=== PATIENT | female | born 1990 | race American Indian/Alaskan Native ===

== ENCOUNTER 2016-07-20 09:06 | Emergency (ER) | payer MEDICARE ==
[2016-07-20 09:52] LABS: Eosinophils % (Auto) 0.5 % (0.0-4.3); Hematocrit 38.4 % (30.3-42.9); Hemoglobin 12.6 gm/dl (10.1-14.3); Mean Corpuscular HGB Conc 33 % (30-34); Mean Corpuscular Hemoglobin 30 pg (28-32); Mean Corpuscular Volume 91 fl (79-97); Platelet Count 185 K/mm3 (140-440); Red Blood Count 4.24 M/mm3 (3.65-5.03); Red Cell Distribution Width 13.4 % (13.2-15.2)
[2016-07-20 09:57] LABS: Alanine Aminotransferase 15 units/L (7-56); Albumin 4.2 g/dL (3.9-5); Albumin/Globulin Ratio 1.3 %; Alkaline Phosphatase 67 units/L (35-129); Anion Gap 17 mmol/L; BUN/Creatinine Ratio 21.66; Bilirubin,Total 0.3 mg/dL (0.1-1.2); Blood Urea Nitrogen 13 mg/dL (7-17); Carbon Dioxide 24 mmol/L (22-30); Glucose 93 mg/dL (65-100); Lipase 22 units/L (13-60); Potassium 3.3 mmol/L (3.6-5.0); Sodium 140 mmol/L (137-145); Total Protein 7.5 g/dL (6.3-8.2)
[2016-07-20 09:59] LABS: Bilirubin,Urine NEG (Negative); Blood,Urine MOD (Negative); Ketones,Urine TR mg/dL (Negative); Leukocyte Esterase,Urine NEG (Negative); Mucus,Urine 3+ /HPF; Nitrite,Urine NEG (Negative); Urobilinogen,Urine < 2.0 mg/dL (<2.0)
[2016-07-20] MEDS ORDERED: ZOFRAN IV ONE (10:37)
[2016-07-20] MEDS ORDERED: PERCOCET 5/325 PO ONE (10:38)
--- NOTE | 2016-07-20 11:18 | Cat Scan Report ---
CT ABDOMEN AND PELVIS WITHOUT CONTRAST: 07/20/16 09:06:00 CLINICAL:Flank pain and hematuria. TECHNIQUE: Volumetric acquisition and 1.25 millimeter scan reconstructions from the lung bases through the iliac crest. The study was performed without oral contrast. FINDINGS: Abdomen: The kidneys are borderline small and measure 10 cm in length. Subtle bilateral renal medullary hypodensities and a few tiny 1-2 mm bilateral medullary calcifications. The renal collecting systems and ureters are nondilated. No urinary calculus is identified. The adrenal glands are normal. The aorta and inferior vena cava are normal. The lung bases are clear. Normal liver, bile ducts and gallbladder. The stomach is moderately distended with fluid and there is moderate wall thickening of the antrum, body and fundus of the stomach. Normal duodenum, pancreas and spleen. No ascites and no pneumoperitoneum. The small bowel and colon are normal. The appendix is normal. Pelvis: Normal urinary bladder, uterus and rectum.Normal ovaries with small follicles. No adnexal mass or free fluid. Normal rectum and sigmoid colon. IMPRESSION: 1. Bilateral medullary sponge kidney and borderline small kidneys. 2. No urinary calculi. 3. Nonspecific gastric fold enlargement and wall thickening.
[2016-07-20] MEDS ORDERED: TORADOL IV ONE (12:47)
[2016-07-20] MEDS ORDERED: K-DUR PO ONE (13:16)
[2016-07-20 13:59] VITALS: BP 114/62
--- NOTE | 2016-07-20 13:59 | Emergency Department Report ---
Entered by JOI SINGH, acting as scribe for KACY PULIDO PA. ED Abdominal Pain HPI - General Chief Complaint: Abdominal Pain Stated Complaint: ABD PAIN Time Seen by Provider: 07/20/16 10:53 Source: patient, family Mode of arrival: Wheelchair Limitations: No Limitations - History of Present Illness Initial Comments: 25 year old female with a PMHx of osteogenesis imperfecta presents to the ED c/ o of right flank pain and right upper abdominal pain that began yesterday. Patient states that her right upper abdominal pain feels like "something is stabbing her skin" with movement. Rates right flank pain 7/10 and abdominal pain a 10/10 in severity. Associated symptoms includes a knot on right upper abdomen with pain, nausea, vomiting, and minimal low back pain, but she denies fever, dysuria, urgency, and frequency. 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 MD Complaint: abdominal pain, flank pain (right) Onset/Timin -: days(s) Location: RUQ, R flank Radiation: none Migration to: no migration Severity: severe Severity scale (0 -10): 10 Quality: stabbing Consistency: constant Improves With: nothing Worsens With: movement Associated Symptoms: nausea, vomiting, other (minimal low back pain. Patient is on her menses). denies: diarrhea, fever, chills, constipation, dysuria, hematemesis, hematochezia - Related Data LMP Date: 07/19/16 Previous Rx's Medication Instructions Recorded Last Taken Type Ibuprofen [Motrin] 600 mg PO Q8H PRN #60 tablet 02/13/14 Unknown Rx Promethazine [Phenergan] 25 mg PO Q6H PRN #25 tablet 02/13/14 Unknown Rx Sulfamethoxazole/Trimethoprim 1 each PO BID #14 tablet 02/13/14 Unknown Rx [Bactrim Ds] Ciprofloxacin HCl [Ciprofloxacin 500 mg PO BID #14 tablet 02/09/16 Unknown Rx TAB] Ondansetron [Zofran Odt] 4 mg PO Q8HR #20 tab.rapdis 02/09/16 Unknown Rx Pantoprazole [Protonix] 40 mg PO QDAY #20 tablet 02/09/16 Unknown Rx Ketorolac [Toradol] 10 mg PO Q4HR PRN #30 tablet 03/05/16 Unknown Rx HYDROcodone/APAP 5-325 [[place] 1 each PO Q6HR PRN #12 tablet 07/20/16 Unknown Rx 5/325] Promethazine [Phenergan TAB] 25 mg PO Q8HR PRN #15 tab 07/20/16 Unknown Rx Allergies Allergy/AdvReac Type Severity Reaction Status Date / Time meperidine HCl [From Demerol] Allergy Unknown Verified 02/08/16 20:54 morphine Allergy Shortness Verified 02/13/14 09:51 of Breath ED Review of Systems Comment: All other systems reviewed and negative Constitutional: denies: chills, fever Eyes: denies: eye discharge Respiratory: no symptoms reported Cardiovascular: denies: chest pain, palpitations, edema, syncope Gastrointestinal: nausea (last night and this morning), vomiting (last night and this morning), other (right flank pain). denies: constipation, hematemesis , melena, hematochezia Genitourinary: denies: urgency, dysuria, frequency Musculoskeletal: back pain (lower). denies: arthralgia Skin: other (knot on RUQ). denies: rash Neurological: denies: headache, weakness, numbness, paresthesias, confusion, abnormal gait, vertigo ED Past Medical Hx - Past Medical History Previous Medical History?: Yes Additional medical history: osteogensis Impertecta - Surgical History Past Surgical History?: Yes Additional Surgical History: > 10 surgeries related to OI, with rods in bilateral legs - Family History Family history: hypertension - Social History Smoking Status: Never Smoker Substance Use Type: None - Medications Home Medications: Home Medications Medication Instructions Recorded Confirmed Last Taken Type Ibuprofen [Motrin] 600 mg PO Q8H PRN #60 tablet 02/13/14 Unknown Rx Promethazine [Phenergan] 25 mg PO Q6H PRN #25 tablet 02/13/14 Unknown Rx Sulfamethoxazole/Trimethoprim 1 each PO BID #14 tablet 02/13/14 Unknown Rx [Bactrim Ds] Ciprofloxacin HCl [Ciprofloxacin 500 mg PO BID #14 tablet 02/09/16 Unknown Rx TAB] Ondansetron [Zofran Odt] 4 mg PO Q8HR #20 tab.rapdis 02/09/16 Unknown Rx Pantoprazole [Protonix] 40 mg PO QDAY #20 tablet 02/09/16 Unknown Rx Ketorolac [Toradol] 10 mg PO Q4HR PRN #30 tablet 03/05/16 Unknown Rx HYDROcodone/APAP 5-325 [[place] 1 each PO Q6HR PRN #12 tablet 07/20/16 Unknown Rx 5/325] Promethazine [Phenergan TAB] 25 mg PO Q8HR PRN #15 tab 07/20/16 Unknown Rx ED Physical Exam - General Limitations: No Limitations General appearance: alert, in no apparent distress - Head Head exam: Present: atraumatic, normocephalic - Eye Eye exam: Present: normal appearance, PERRL, EOMI. Absent: periorbital swelling , periorbital tenderness Pupils: Present: normal accommodation - ENT ENT exam: Present: normal exam, normal orophraynx, mucous membranes moist, TM's normal bilaterally, normal external ear exam - Neck Neck exam: Present: normal inspection, full ROM. Absent: tenderness, lymphadenopathy - Respiratory Respiratory exam: Present: normal lung sounds bilaterally. Absent: respiratory distress, wheezes, rales, rhonchi, chest wall tenderness - Cardiovascular Cardiovascular Exam: Present: normal rhythm, bradycardia (asymptomatic), other ( S1/S2). Absent: systolic murmur, diastolic murmur, rubs, gallop - GI/Abdominal GI/Abdominal exam: Present: soft, tenderness (RUQ), guarding (RUQ), rebound (RUQ ), normal bowel sounds. Absent: distended, rigid, organomegaly, mass, bruit, pulsatile mass, hernia - Extremities Exam Extremities exam: Present: normal inspection, full ROM, normal capillary refill. Absent: tenderness, pedal edema, joint swelling, calf tenderness - Back Exam Back exam: Present: normal inspection, full ROM, CVA tenderness (R). Absent: tenderness (right CVA tenderness), CVA tenderness (L), muscle spasm, paraspinal tenderness, vertebral tenderness, rash noted - Expanded Back Exam Expanded Back exam: Absent: saddle anesthesia Back exam: Negative Straight Leg Raising: Left, Right - Neurological Exam Neurological exam: Present: alert, oriented X3, normal gait, reflexes normal. Absent: motor sensory deficit - Psychiatric Psychiatric exam: Present: normal affect, normal mood - Skin Skin exam: Present: warm, dry, intact, other (knot on RUQ). Absent: rash, erythema, abrasion, ecchymosis ED Course Vital Signs 07/20/16 09:13 Temperature 97.9 F Pulse Rate 59 L Respiratory 20 Rate Blood Pressure 105/78 O2 Sat by Pulse 96 Oximetry Vital Signs - 24 hr 07/20/16 07/20/16 09:13 13:57 Temperature 97.9 F Pulse Rate 59 L 54 L Respiratory 20 18 Rate Blood Pressure 105/78 Blood Pressure 114/62 [Right] O2 Sat by Pulse 96 99 Oximetry - Reevaluation(s) Reevaluation #1: 07/20/16 13:21 Patient given Zofran 4 mg IV, Percocet 5/325 mg 2 tablets in emergency room. After a physical assessment, patient says she was in a lot of pain to right upper quadrant says she was given Toradol 30 mg IV 07/20/16 13:21 . Reevaluation #2: 07/20/16 13:24 Was given potassium 40 mEq by mouth for potassium of 3.3. I encouraged her to eat banana twice daily to keep her potassium up. ED Medical Decision Making - Lab Data Result diagrams: 07/20/16 09:26 07/20/16 09:26 Lab Results 07/20/16 07/20/16 07/20/16 Range/Units 09:25 09:26 09:26 WBC 6.0 (4.5-11.0) K/mm3 RBC 4.24 (3.65-5.03) M/mm3 Hgb 12.6 (10.1-14.3) gm/dl Hct 38.4 (30.3-42.9) % MCV 91 (79-97) fl MCH 30 (28-32) pg MCHC 33 (30-34) % RDW 13.4 (13.2-15.2) % Plt Count 185 (140-440) K/mm3 Lymph % (Auto) 17.8 (13.4-35.0) % [place] % (Auto) 3.3 (0.0-7.3) % Eos % (Auto) 0.5 (0.0-4.3) % Baso % (Auto) 1.0 (0.0-1.8) % Lymph # 1.1 L (1.2-5.4) K/mm3 [place] # 0.2 (0.0-0.8) K/mm3 Eos # 0.0 (0.0-0.4) K/mm3 Baso # 0.1 (0.0-0.1) K/mm3 Seg Neutrophils % 77.4 H (40.0-70.0) % Seg Neutrophils # 4.6 (1.8-7.7) K/mm3 Sodium 140 (137-145) mmol/L Potassium 3.3 L (3.6-5.0) mmol/L Chloride 102.0 (98-107) mmol/L Carbon Dioxide 24 (22-30) mmol/L Anion Gap 17 mmol/L BUN 13 (7-17) mg/dL Creatinine 0.6 L (0.7-1.2) mg/dL Estimated GFR > 60 ml/min BUN/Creatinine Ratio 21.66 % Glucose 93 (65-100) mg/dL Calcium 9.0 (8.4-10.2) mg/dL Total Bilirubin 0.3 (0.1-1.2) mg/dL AST 23 (5-40) units/L ALT 15 (7-56) units/L Alkaline Phosphatase 67 (35-129) units/L Total Protein 7.5 (6.3-8.2) g/dL Albumin 4.2 (3.9-5) g/dL Albumin/Globulin Ratio 1.3 % Lipase 22 (13-60) units/L Urine Color Yellow (Yellow) Urine Turbidity Clear (Clear) Urine pH 6.0 (5.0-7.0) Ur Specific [place] 1.030 (1.003-1.030) Urine Protein 30 mg/dl (Negative) mg/dL Urine Glucose (UA) Neg (Negative) mg/dL Urine Ketones Tr (Negative) mg/dL Urine Blood Mod (Negative) Urine Nitrite Neg (Negative) Ur Reducing Substances Not Reportable Urine Bilirubin Neg (Negative) Urine Ictotest Not Reportable Urine Urobilinogen < 2.0 (<2.0) mg/dL Ur Leukocyte Esterase Neg (Negative) Urine WBC (Auto) 1.0 (0.0-6.0) /HPF Urine RBC (Auto) 21.0 (0.0-6.0) /HPF U Epithel Cells (Auto) 4.0 (0-13.0) /HPF Urine Mucus 3+ /HPF Urine HCG, Qual Negative (Negative) Patient has moderate blood in her urine because she is on her menses - Radiology Data Radiology results: report reviewed CT scan of the abdomen and pelvis without IV contrast revealed bilateral medullary sponge kidney and borderline small kidneys. No urinary calculi. Nonspecific gastric folds enlargement and wall thickness and normal liver, bile ducts and gallbladder. The stomach is moderately distended with fluid and there is moderate wall thickening of the antrum, body and fundus of the stomach. Normal duodenum, pancreas and spleen. No ascites. Small bowel and colon are normal. The appendix is normal.(CT revealed normal urinary bladder, uterus and rectum. Normal ovaries with small follicles. No adnexal mass or free fluid. - Medical Decision Making ED course: Patient with diagnosis of abdominal pain right upper quadrant, hyperkalemia, bilateral medullary sponge kidney. I discussed CT scan result with patient along with lab results. I informed her that she is not .Patient given Zofran 4 mg IV, Percocet 5/325 mg 2 tablets in emergency room. After a physical assessment, patient says she was in a lot of pain to right upper quadrant says she was given Toradol 30 mg IV. Her potassium is low at 3.3. She was given potassium 40 mEq by mouth in emergency room. Patient noted in the room to be sitting up and appears well and in no discomfort. She states understanding of discharge instruction and treatment plan and need to follow-up with md psychiatry and kidney doctor. Patient discharged home with prescription for [place] and Phenergan. ED Disposition Clinical Impression: Kidney, medullary sponge, Rt flank pain, Hypokalemia Abdominal pain Qualifiers: Abdominal location: upper abdomen, unspecified Qualified Code(s): R10.10 - Upper abdominal pain, unspecified Disposition: DISCHARGED TO HOME OR SELFCARE Is pt being admited?: No Does the pt Need Aspirin: No Condition: Stable Instructions: Abdominal Pain (ED), Flank Pain (ED), Acute Nausea and Vomiting ( ED), Hypokalemia (ED) Additional Instructions: Please increase her fluid intake Follow-up with md psychiatry. Please follow up with material assistant Phenergan and [place] can make you drowsy so please do not drive or operate heavy machinery while taking medication. medullay sponge kidneys Medullary sponge kidney, also known as Cacchi-Pardeep disease, is a defect where changes occur in the tubules, or tiny tubes, inside a fetus kidneys. In a normal kidney, urine flows through these tubules as the kidney is being formed during a fetus growth. In medullary sponge kidney, tiny, fluid-filled sacs called cysts form in the tubules within the medullathe inner part of the kidneycreating a spongelike appearance. The cysts keep urine from flowing freely through the tubules. Symptoms of medullary sponge kidney do not usually appear until the teenage years or the 20s. Medullary sponge kidney can affect one or both kidneys. What are the complications of Medullary Sponge Kidney? Complications of medullary sponge kidney include hematuria, or blood in the urine kidney stones urinary tract infections (UTIs) Medullary sponge kidney rarely leads to more serious problems, such as chronic kidney disease or kidney failure. What causes Medullary Sponge Kidney? Scientists do not fully understand the cause of medullary sponge kidney or why cysts form in the tubules during development. Even though medullary sponge kidney is present at , most cases do not appear to be inherited. How common is Medullary Sponge Kidney? Medullary sponge kidney affects about one person per 5,000 people in the [place]. Researchers have reported that 12 to 20 percent of people who develop calcium-based kidney stones have medullary sponge kidney1. Who is more likely to develop Medullary Sponge Kidney? Medullary sponge kidney affects all races and geographic regions. Among people who are more likely to develop calcium-based kidney stones, women are more likely than men to have medullary sponge kidney.2 What are the signs and symptoms of Medullary Sponge Kidney? Many people with medullary sponge kidney have no symptoms. The first sign that a person has medullary sponge kidney is usually a UTI or a kidney stone. UTIs and kidney stones share many of the same signs and symptoms: burning or painful urination pain in the back, lower abdomen, or groin cloudy, dark, or bloody urine foul-smelling urine fever and chills vomiting People who experience these symptoms should see or call a health care provider as soon as possible. How is Medullary Sponge Kidney diagnosed? A health care provider diagnoses medullary sponge kidney based on a medical and family history a physical exam imaging studies Medical and Family History Taking a medical and family history can help diagnose medullary sponge kidney. A health care provider will suspect medullary sponge kidney when a person has repeated UTIs or kidney stones. Physical Exam No physical signs are usually present in a patient with medullary sponge kidney , except for blood in the urine. Health care providers usually confirm a diagnosis of medullary sponge kidney with imaging studies. Imaging Studies Imaging is the medical term for tests that use different methods to see bones, tissues, and organs inside the body. Health care providers commonly choose one or more of three imaging techniques to diagnose medullary sponge kidney: intravenous pyelogram computerized tomography (CT) scan ultrasound A radiologista doctor who specializes in medical imaginginterprets the images from these studies, and patients do not need anesthesia. Intravenous Pyelogram In an intravenous pyelogram, a health care provider injects a special dye, called contrast medium, into a vein in the patients arm. The contrast medium travels through the body to the kidneys. The kidneys excrete the contrast medium into urine, which makes the urine visible on an x-ray. An x-ray bench lay out technician performs this procedure at a health care providers office, an outpatient center, or a hospital. An intravenous pyelogram can show any blockage in the urinary tract, and the cysts show up as clusters of light. Drawing of a medullary sponge kidney as seen in an intravenous pyelogram. The background is black. The large part of the kidney appears to be porous, like a sponge. Two white spots on the kidney are circled. A label identifies the white spots as cysts. In an intravenous pyelogram of a medullary sponge kidney, cysts show up as clusters of light. Computerized Tomography Scans Computerized tomography scans use a combination of x-rays and computer technology to create images. For a CT scan, a health care provider may give the patient a solution to drink and an injection of contrast medium. CT scans require the patient to lie on a table that slides into a tunnel-shaped device where the x-rays are taken. An x-ray bench lay out technician performs the procedure in an outpatient center or a hospital. CT scans can show expanded or stretched tubules. Ultrasound Ultrasound uses a device, called a transducer, that bounces safe, painless sound waves off organs to create an image of their structure. A specially trained bench lay out technician performs the procedure in a health care providers office, an outpatient center, or a hospital. Ultrasound can show kidney stones and calcium deposits within the kidney. How is Medullary Sponge Kidney treated? Scientists have not discovered a way to reverse medullary sponge kidney. Once a health care provider is sure a person has medullary sponge kidney, treatment focuses on curing an existing UTI removing any kidney stones Curing an Existing Urinary Tract Infection To treat a UTI, the health care provider may prescribe a medication called an antibiotic that kills bacteria. The choice of medication and length of treatment depend on the persons medical history and the type of bacteria causing the infection. More information is provided in the [facility] health topic, Urinary Tract Infections in Adults. Removing Kidney Stones Treatment for kidney stones usually depends on their size and what they are made of, as well as whether they are causing pain or obstructing the urinary tract. Kidney stones may be treated by a general practitioner or by a urologista doctor who specializes in the urinary tract. Small stones usually pass through the urinary tract without treatment. Still, the person may need pain medication and should drink lots of liquids to help move the stone along. Pain control may consist of oral or intravenous (IV) medication, depending on the duration and severity of the pain. People may need IV fluids if they become dehydrated from vomiting or an inability to drink. A person with a larger stone, or one that blocks urine flow and causes great pain, may need more urgent treatment, such as shock wave lithotripsy. A machine called a lithotripter is used to break up the kidney stone into smaller pieces to pass more easily through the urinary tract. The patient may need local or general anesthesia. ureteroscopy. A ureteroscopea long, tubelike instrument with an eyepieceis used to find and retrieve the stone with a small basket or to break the stone up with laser energy. Local or general anesthesia may be required. percutaneous nephrolithotomy. In this procedure, a wire-thin viewing instrument , called a nephroscope, is used to locate and remove the stones. During the procedure, which requires general anesthesia, a tube is inserted directly into the kidney through a small incision in the patients back. More information is provided in the [facility] health topic, Kidney Stones in Adults. Can Medullary Sponge Kidney be prevented? Scientists have not yet found a way to prevent medullary sponge kidney. However , health care providers can recommend medications and dietary changes to prevent future UTIs and kidney stones. Medications to Prevent Future Urinary Tract Infections and Kidney Stones Health care providers may prescribe certain medications to prevent UTIs and kidney stones: A person with medullary sponge kidney may need to continue taking a low-dose antibiotic to prevent recurrent infections. Medications that reduce calcium in the urine may help prevent calcium kidney stones. These medications may include potassium citrate thiazide Eating, Diet, and Nutrition The following changes in diet may help prevent UTIs and kidney stone formation: Drinking plenty of water and other liquids can help flush bacteria from the urinary tract and dilute urine so kidney stones cannot form. A person should drink enough liquid to produce about 2 to 2.5 quarts of urine every day.3 Reducing sodium intake, mostly from salt, may help prevent kidney stones. Diets high in sodium can increase the excretion of calcium into the urine and thus increase the chance of calciumcontaining kidney stones forming. Foods rich in animal proteins such as meat, eggs, and fish can increase the chance of uric acid stones and calcium stones forming. People who form stones should limit their meat consumption to 6 to 8 ounces a day.4 People who are more likely to develop calcium oxalate stones should include 1, 000 milligrams of calcium in their diet every day. Adults older than 50 years should consume 1,200 milligrams of calcium daily.3 Calcium in the digestive tract binds to oxalate from food and keeps it from entering the blood and the urinary tract, where it can form stones. People with medullary sponge kidney should talk with their health care provider or a dietitian before making any dietary changes. A dietitian can help a person plan healthy meals. Points to Remember Medullary sponge kidney, also known as Cacchi-Pardeep disease, is a defect where changes occur in the tubules, or tiny tubes, inside a fetus kidneys. Symptoms of medullary sponge kidney do not usually appear until the teenage years or the 20s. Medullary sponge kidney can affect one or both kidneys. Complications of medullary sponge kidney include hematuria, or blood in the urine kidney stones urinary tract infections (UTIs) Many people with medullary sponge kidney have no symptoms. The first sign that a person has medullary sponge kidney is usually a UTI or a kidney stone. UTIs and kidney stones share many of the same signs and symptoms: burning or painful urination pain in the back, lower abdomen, or groin cloudy, dark, or bloody urine foul-smelling urine fever and chills vomiting Health care providers commonly choose one or more of three imaging techniques to diagnose medullary sponge kidney: intravenous pyelogram computerized tomography (CT) scan ultrasound Scientists have not discovered a way to reverse medullary sponge kidney. Once a health care provider is sure a person has medullary sponge kidney, treatment focuses on curing an existing UTI removing any kidney stones Scientists have not yet found a way to prevent medullary sponge kidney. However , health care providers can recommend medications and dietary changes to prevent future UTIs and kidney stones. References [1] Ramone CHENG. Medullary sponge kidney. Medscape website. http:// emedicine.medscape.com/article/888222-kwsydswk . Updated June 09, 2013. Accessed December 16, 2013. [2] Marianne Garay. Cystic diseases of the kidneys. In: Kenneth CASIANO, ed. [employer] The Kidney. Vol 1. Babb: Bailey; 2012:[id number]. [3] Jonh DA, Abelardo FL, Benjamín OW. Nephrolithiasis. In: Kenneth CASIANO, ed. [employer] The Kidney. Vol 1. Babb: Bailey; 2012: [id number]. [4] Whit R, Cordell A, Jen H, Vernon R. Evaluation and medical management of the kidney stone patient. [place] [employer] Association Journal. 2010;4(6):612942. Clinical Trials The National Hurricane of Diabetes and Digestive and Kidney Diseases (NIDDK) and other components of the National Institutes of Health (RUST) conduct and support research into many diseases and conditions. What are clinical trials, and are they right for you? Clinical trials are part of clinical research and at the heart of all medical advances. Clinical trials look at new ways to prevent, detect, or treat disease. Researchers also use clinical trials to look at other aspects of care, such as improving the quality of life for people with chronic illnesses. Find out if clinical trials are right for you . What clinical trials are open? Clinical trials that are currently open and are recruiting can be viewed at www.ClinicalTrials.gov . Prescriptions: HYDROcodone/APAP 5-325 [[place] 5/325] 1 each PO Q6HR PRN #12 tablet PRN Reason: Pain Promethazine [Phenergan TAB] 25 mg PO Q8HR PRN #15 tab PRN Reason: Nausea Referrals: [facility] [Provider Group] - 2-3 Days PRIMARY [facility], [Primary Care Provider] - 2-3 Days SHELIA COOPER MD [Staff Physician] - 2-3 Days MUSTAPHA KAUR MD [Staff Physician] - 2-3 Days Forms: Accompanied Note, Work/School Release Form(ED) This documentation as recorded by the SAMANTHA simpson JASMINE,accurately reflects the service I personally performed and the decisions made by ,KACY PULIDO PA.
== END 2016-07-20 13:57 | disposition home or self-care (01) ==
LOC: ED 09:06
DX: Q61.5 Medullary cystic kidney (principal); E87.6 Hypokalemia; R10.10 Upper abdominal pain, unspecified; Z88.5 Allergy status to narcotic agent; Z88.8 Allergy status to other drugs, medicaments and biological substances
CPT/HCPCS: 36415; 74176; 80053; 81001; 81025; 83690; 85025; 96374; 96375; 99284; J1885; J2405

== ENCOUNTER 2016-08-18 11:41 | Emergency (ER) | payer MEDICARE ==
[2016-08-18 11:58] VITALS: BP 125/73
[2016-08-18] MEDS ORDERED: ZOFRAN ODT ONE (12:00)
[2016-08-18] MEDS ORDERED: ZOFRAN ODT PO ONE (12:06)
--- NOTE | 2016-08-18 12:10 | Emergency Department Report ---
Entered by JOI SINGH, acting as scribe for PEACE WILCOX NP. Chief Complaint: Nausea/Vomiting/Diarrhea Stated Complaint: ABD PAIN/DEHYDRATED Time Seen by Provider: 08/18/16 12:00 - HPI History of Present Illness: 25 y/o female c/o vomiting that began yesterday vomiting becasue of period similar symptoms every month during menstruation LMP: 08/17/16 no vaginal discharge +abdominal pain bc of cramps +nausea 600 ml fluid in ambulcance Took motrin [employer] no relief PMHx of osteoimperfecta sexually active no discharge no ob asking for pain meds - ROS Review of Systems: see above - Exam Vital Signs: Vital Signs 08/18/16 11:55 Temperature 98.5 F Pulse Rate 70 Respiratory 18 Rate Blood Pressure 125/73 O2 Sat by Pulse 97 Oximetry Physical Exam: see above MSE screening note: Focused history and physical exam performed. Due to findings the following was ordered: ED Disposition for MSE Condition: Stable This documentation as recorded by the scribe,JOI SINGH,accurately reflects the service I personally performed and the decisions made by ELEANOR coles CATHLEEN A, NP.
[2016-08-18 12:28] LABS: Basophils % (Auto) 0.5 % (0.0-1.8); Hemoglobin 12.8 gm/dl (10.1-14.3); Mean Corpuscular HGB Conc 34 % (30-34); Mean Corpuscular Hemoglobin 30 pg (28-32); Mean Corpuscular Volume 89 fl (79-97); Platelet Count 197 K/mm3 (140-440); Red Blood Count 4.26 M/mm3 (3.65-5.03); Red Cell Distribution Width 12.9 % (13.2-15.2)
[2016-08-18 12:57] LABS: Anion Gap 22 mmol/L; Blood Urea Nitrogen 11 mg/dL (7-17); Carbon Dioxide 20 mmol/L (22-30); Chloride 102.1 mmol/L (98-107); Glucose 121 mg/dL (65-100); Potassium 3.3 mmol/L (3.6-5.0); Sodium 141 mmol/L (137-145)
[2016-08-18] MEDS ORDERED: ZOFRAN ONE (14:21)
[2016-08-18] MEDS ORDERED: ZOFRAN IV ONE (14:25)
[2016-08-18 15:00] LABS: Bilirubin,Urine NEG (Negative); Blood,Urine MOD (Negative); Ketones,Urine TR mg/dL (Negative); Leukocyte Esterase,Urine TR (Negative); Mucus,Urine FEW /HPF; Nitrite,Urine NEG (Negative); Urobilinogen,Urine < 2.0 mg/dL (<2.0)
[2016-08-18 15:01] LABS: RBC,Urine > 182.0 /HPF (0.0-6.0)
== END 2016-08-18 12:15 | disposition left against medical advice (07) ==
LOC: ED 11:41
DX: R11.2 Nausea with vomiting, unspecified (principal); R10.9 Unspecified abdominal pain; Z53.21 Procedure and treatment not carried out due to patient leaving prior to being seen by health care provider
CPT/HCPCS: 36415; 80048; 81001; 81025; 83735; 85025; 96374; J2405; Q0162

== ENCOUNTER 2016-11-09 03:27 | Emergency (ER) | payer MEDICARE, OTHER ==
[2016-11-09] MEDS ORDERED: ZOFRAN IV ONE ×2 (04:10→05:00)
[2016-11-09] MEDS ORDERED: NACL 0.9% 500 ML 500 ML ONE (04:42)
[2016-11-09] MEDS ORDERED: NACL 0.9% 500 ML 500 ML IV ONE (04:50)
[2016-11-09 05:05] LABS: Basophils % (Auto) 0.9 % (0.0-1.8); Eosinophils % (Auto) 0.2 % (0.0-4.3); Hematocrit 39.8 % (30.3-42.9); Hemoglobin 13.3 gm/dl (10.1-14.3); Mean Corpuscular HGB Conc 33 % (30-34); Mean Corpuscular Hemoglobin 30 pg (28-32); Mean Corpuscular Volume 90 fl (79-97); Platelet Count 169 K/mm3 (140-440); Red Cell Distribution Width 12.8 % (13.2-15.2); White Blood Count 5.8 K/mm3 (4.5-11.0)
[2016-11-09 05:38] LABS: Alanine Aminotransferase 9 units/L (7-56); Albumin 4.4 g/dL (3.9-5); Albumin/Globulin Ratio 1.2 %; Alkaline Phosphatase 67 units/L (35-129); Anion Gap 19 mmol/L; Blood Urea Nitrogen 9 mg/dL (7-17); Calcium 9.2 mg/dL (8.4-10.2); Carbon Dioxide 26 mmol/L (22-30); Chloride 99.7 mmol/L (98-107); Glucose 99 mg/dL (65-100); Lipase 21 units/L (13-60); Potassium 3.5 mmol/L (3.6-5.0); Sodium 141 mmol/L (137-145)
[2016-11-09 07:19] LABS: Bilirubin,Urine NEG (Negative); Blood,Urine SM (Negative); Ketones,Urine NEG (Negative); Leukocyte Esterase,Urine NEG (Negative); Mucus,Urine 2+ /HPF; Nitrite,Urine NEG (Negative); Protein,Urine <15 mg/dL mg/dL (Negative); Urobilinogen,Urine < 2.0 mg/dL (<2.0)
[2016-11-09 07:21] LABS: WBC,Urine < 1.0 /HPF (0.0-6.0)
[2016-11-09] MEDS ORDERED: ZOFRAN IM ONE (08:09)
[2016-11-09] MEDS ORDERED: TORADOL IM ONE (08:09)
--- NOTE | 2016-11-09 08:14 | Emergency Department Report ---
ED Abdominal Pain HPI - General Chief Complaint: Abdominal Pain Stated Complaint: VOMITING Time Seen by Provider: 11/09/16 08:04 Source: patient Mode of arrival: Ambulatory Limitations: No Limitations - History of Present Illness Initial Comments: Ms. Chandler is a 26-year-old female coming with abdominal pain that started yesterday when she started to have her period. Then is associated with nausea and vomiting no diarrhea. Patient stated this is happening every month since she started having her period. No fever MD Complaint: abdominal pain Severity scale (0 -10): 6 - Related Data Previous Rx's Medication Instructions Recorded Last Taken Type Ketorolac [Toradol] 10 mg PO Q6H PRN #20 tablet 11/09/16 Unknown Rx Ondansetron [Zofran Odt] 4 mg PO Q8HR PRN #14 tab.rapdis 11/09/16 Unknown Rx Allergies Allergy/AdvReac Type Severity Reaction Status Date / Time meperidine HCl [From Demerol] Allergy Unknown Verified 02/08/16 20:54 morphine Allergy Shortness Verified 02/13/14 09:51 of Breath ED Review of Systems ROS: Stated complaint: VOMITING Other details as noted in HPI Constitutional: denies: chills, fever Respiratory: denies: cough, shortness of breath Cardiovascular: denies: chest pain Gastrointestinal: abdominal pain, nausea, vomiting. denies: diarrhea Genitourinary: abnormal menses (meniscal cramp). denies: urgency, dysuria, hematuria, discharge ED Past Medical Hx - Past Medical History Additional medical history: osteogensis Impertecta - Surgical History Additional Surgical History: > 10 surgeries related to OI, with rods in bilateral legs - Social History Smoking Status: Never Smoker Substance Use Type: None - Medications Home Medications: Home Medications Medication Instructions Recorded Confirmed Last Taken Type Ketorolac [Toradol] 10 mg PO Q6H PRN #20 tablet 11/09/16 Unknown Rx Ondansetron [Zofran Odt] 4 mg PO Q8HR PRN #14 tab.rapdis 11/09/16 Unknown Rx ED Physical Exam - General Limitations: No Limitations General appearance: alert - ENT ENT exam: Present: normal exam - Neck Neck exam: Present: normal inspection - Respiratory Respiratory exam: Present: normal lung sounds bilaterally. Absent: respiratory distress, wheezes - Cardiovascular Cardiovascular Exam: Present: regular rate - GI/Abdominal GI/Abdominal exam: Present: soft, tenderness (suprapubic), normal bowel sounds. Absent: distended, guarding, rebound, rigid, diminished bowel sounds, hyperactive bowel sounds, hypoactive bowel sounds, organomegaly, mass, bruit, pulsatile mass, hernia - Neurological Exam Neurological exam: Present: alert, oriented X3, CN II-XII intact - Skin Skin exam: Present: warm, normal color ED Course Vital Signs 11/09/16 11/09/16 04:02 07:28 Temperature 98 F Pulse Rate 67 65 Respiratory 18 18 Rate Blood Pressure 123/79 Blood Pressure 123/79 112/78 [Right] O2 Sat by Pulse 100 100 Oximetry ED Medical Decision Making - Lab Data Result diagrams: 11/09/16 04:45 11/09/16 04:45 Critical care attestation.: If time is entered above; I have spent that time in minutes in the direct care of this critically ill patient, excluding procedure time. ED Disposition Clinical Impression: Abdominal pain, Menstrual cramps Disposition: - TO HOME OR SELFCARE Is pt being admited?: No Condition: Stable Instructions: Abdominal Pain (ED), Dysmenorrhea (ED) Referrals: PRIMARY CARE, [Primary Care Provider] - 3-5 Days
[2016-11-09 08:30] VITALS: BP 110/61
== END 2016-11-09 08:29 | disposition home or self-care (01) ==
LOC: ED 03:27
DX: N94.6 Dysmenorrhea, unspecified (principal); R10.9 Unspecified abdominal pain
CPT/HCPCS: 36415; 80053; 81001; 83690; 85025; 93005; 93010; 96361; 96372; 96374; 96376; 99283; J1885; J2405; J7040

== ENCOUNTER 2016-12-04 15:38 | Emergency (ER) | payer SELFPAY ==
[2016-12-04 16:18] LABS: Basophils % (Auto) 0.6 % (0.0-1.8); Eosinophils % (Auto) 0.1 % (0.0-4.3); Hematocrit 39.1 % (30.3-42.9); Hemoglobin 13.3 gm/dl (10.1-14.3); Mean Corpuscular HGB Conc 34 % (30-34); Mean Corpuscular Hemoglobin 30 pg (28-32); Mean Corpuscular Volume 89 fl (79-97); Platelet Count 180 K/mm3 (140-440); Red Blood Count 4.39 M/mm3 (3.65-5.03); White Blood Count 5.9 K/mm3 (4.5-11.0)
[2016-12-04] MEDS ORDERED: ZOFRAN ONE (16:27)
[2016-12-04 16:32] LABS: Anion Gap 24 mmol/L; Blood Urea Nitrogen 9 mg/dL (7-17); Calcium 9.9 mg/dL (8.4-10.2); Carbon Dioxide 21 mmol/L (22-30); Chloride 99.3 mmol/L (98-107); Glucose 126 mg/dL (65-100); Potassium 3.5 mmol/L (3.6-5.0); Sodium 141 mmol/L (137-145)
[2016-12-04] MEDS ORDERED: DILAUDID IV ONE (16:37)
[2016-12-04] MEDS ORDERED: ATIVAN IV ONE (16:37)
[2016-12-04] MEDS ORDERED: ZOFRAN IV ONE (16:37)
[2016-12-04] MEDS ORDERED: BENADRYL IV ONE (16:38)
--- NOTE | 2016-12-04 18:35 | Emergency Department Report ---
ED Abdominal Pain HPI - General Chief Complaint: Nausea/Vomiting/Diarrhea Stated Complaint: LEFT KNEE INJURY Time Seen by Provider: 12/04/16 16:31 Source: patient Mode of arrival: Wheelchair Limitations: No Limitations - History of Present Illness Initial Comments: Patient arrives with her mother who states she wasn't aware that she was having this problem. The patient has been to the emergency department some 45 times with similar complaints. She states that it always is initiated by her period. She complains of abdominal discomfort and vomiting. Apparently she arrived in triage "yelling and screaming". She stated that she fell on her knee and cold. She was very dramatic at the time of my encounter. I have seen this patient in July 2016. I sent her for a CT of her abdomen and pelvis which just showed an incidental medullary sponge kidney. She has been here in a number of times subsequently without radiographic imaging. She states her symptoms are quite recurred. She does not follow up with a oncologist. She does not have a GI specialist. She lists an allergy to Demerol and morphine. MD Complaint: abdominal pain -: Gradual, hour(s) Location: diffuse Radiation: none Migration to: no migration Severity: moderate, severe Quality: aching Consistency: constant Improves With: nothing Worsens With: nothing Context: other (recurrent abdominal pain) Associated Symptoms: nausea, vomiting - Related Data Previous Rx's Medication Instructions Recorded Last Taken Type HYDROcodone/APAP 5-325 [[place] 1 each PO Q6HR PRN #10 tablet 12/04/16 Unknown Rx 5/325] Ondansetron [Zofran Odt] 4 mg PO Q6H #10 tab.rapdis 12/04/16 Unknown Rx Allergies Allergy/AdvReac Type Severity Reaction Status Date / Time meperidine HCl [From Demerol] Allergy Unknown Verified 02/08/16 20:54 morphine Allergy Shortness Verified 02/13/14 09:51 of Breath ED Review of Systems ROS: Stated complaint: LEFT KNEE INJURY Other details as noted in HPI Constitutional: denies: chills, fever Eyes: denies: eye pain, eye discharge, vision change ENT: denies: ear pain, throat pain Respiratory: denies: cough, shortness of breath, wheezing Cardiovascular: denies: chest pain, palpitations Endocrine: no symptoms reported Gastrointestinal: abdominal pain, nausea, vomiting. denies: diarrhea Genitourinary: denies: urgency, dysuria, discharge Musculoskeletal: denies: back pain, joint swelling, arthralgia Skin: denies: rash, lesions Neurological: denies: headache, weakness, paresthesias Psychiatric: denies: anxiety, depression Hematological/Lymphatic: denies: easy bleeding, easy bruising ED Past Medical Hx - Past Medical History Additional medical history: osteogensis Impertecta - Surgical History Additional Surgical History: > 10 surgeries related to OI, with rods in bilateral legs - Social History Smoking Status: Never Smoker Substance Use Type: None - Medications Home Medications: Home Medications Medication Instructions Recorded Confirmed Last Taken Type HYDROcodone/APAP 5-325 [[place] 1 each PO Q6HR PRN #10 tablet 12/04/16 Unknown Rx 5/325] Ondansetron [Zofran Odt] 4 mg PO Q6H #10 tab.rapdis 12/04/16 Unknown Rx ED Physical Exam - General Limitations: No Limitations General appearance: alert, anxious - Head Head exam: Present: atraumatic, normocephalic - Eye Eye exam: Present: normal appearance - ENT ENT exam: Present: mucous membranes moist - Neck Neck exam: Present: normal inspection - Respiratory Respiratory exam: Present: normal lung sounds bilaterally. Absent: respiratory distress - Cardiovascular Cardiovascular Exam: Present: regular rate, normal rhythm. Absent: systolic murmur, diastolic murmur, rubs, gallop - GI/Abdominal GI/Abdominal exam: Present: soft, normal bowel sounds, other (the patient's abdominal exam was remarkably benign). Absent: distended, tenderness, guarding , rebound, rigid, organomegaly, mass, bruit, pulsatile mass, hernia - Extremities Exam Extremities exam: Present: normal inspection - Back Exam Back exam: Present: normal inspection - Neurological Exam Neurological exam: Present: alert, oriented X3, CN II-XII intact. Absent: motor sensory deficit - Psychiatric Psychiatric exam: Present: normal affect, normal mood - Skin Skin exam: Present: warm, dry, intact, normal color. Absent: rash ED Course Vital Signs 12/04/16 12/04/16 12/04/16 15:47 17:03 17:05 Temperature 97.9 F Pulse Rate 51 L 57 L Respiratory 18 17 12 Rate Blood Pressure 109/77 145/86 O2 Sat by Pulse 100 100 Oximetry 12/04/16 12/04/1612/04/17 17:09 17:35 17:37 Temperature Pulse Rate 52 L 58 L Respiratory 11 L 11 L Rate Blood Pressure 145/86 145/86 O2 Sat by Pulse 100 98 100 Oximetry 12/04/16 12/04/16 12/04/16 17:39 17:41 17:43 Temperature Pulse Rate 54 L 53 L 54 L Respiratory 13 22 19 Rate Blood Pressure 145/86 145/86 145/86 O2 Sat by Pulse 98 99 98 Oximetry 12/04/16 12/04/16 12/04/16 17:45 17:47 17:49 Temperature Pulse Rate 54 L 52 L 54 L Respiratory 20 20 18 Rate Blood Pressure 145/86 145/86 145/86 O2 Sat by Pulse 99 100 99 Oximetry 12/04/16 12/04/16 12/04/16 17:51 17:53 17:55 Temperature Pulse Rate 52 L 51 L 53 L Respiratory 21 22 19 Rate Blood Pressure 145/86 145/86 145/86 O2 Sat by Pulse 100 99 100 Oximetry 12/04/16 12/04/16 12/04/16 17:57 17:59 18:01 Temperature Pulse Rate 58 L 62 55 L Respiratory 17 11 L 8 L Rate Blood Pressure 145/86 145/86 109/70 O2 Sat by Pulse 100 90 99 Oximetry 12/04/16 12/04/16 12/04/16 18:03 18:05 18:07 Temperature Pulse Rate 67 54 L 57 L Respiratory 10 L 14 16 Rate Blood Pressure 109/70 109/70 109/70 O2 Sat by Pulse 99 99 100 Oximetry 12/04/16 12/04/16 12/04/16 18:09 18:11 18:13 Temperature Pulse Rate 59 L 54 L 56 L Respiratory 13 12 19 Rate Blood Pressure 109/70 109/70 109/70 O2 Sat by Pulse 100 99 100 Oximetry 12/04/16 12/04/16 12/04/16 18:15 18:17 18:19 Temperature Pulse Rate 51 L 53 L 53 L Respiratory 16 18 22 Rate Blood Pressure 109/70 109/70 109/70 O2 Sat by Pulse 100 100 100 Oximetry 12/04/16 12/04/16 12/04/16 18:21 18:23 18:25 Temperature Pulse Rate 53 L 63 54 L Respiratory 15 22 20 Rate Blood Pressure 109/70 109/70 109/70 O2 Sat by Pulse 100 100 100 Oximetry 12/04/16 12/04/16 12/04/16 18:27 18:29 18:31 Temperature Pulse Rate 56 L 55 L 53 L Respiratory 16 20 17 Rate Blood Pressure 109/70 109/70 109/70 O2 Sat by Pulse 100 100 100 Oximetry 12/04/16 12/04/16 12/04/16 18:33 18:35 18:37 Temperature Pulse Rate 55 L 59 L 61 Respiratory 17 20 23 Rate Blood Pressure 109/70 109/70 109/70 O2 Sat by Pulse 100 100 100 Oximetry 12/04/16 12/04/16 12/04/16 18:39 18:41 18:43 Temperature Pulse Rate 61 62 52 L Respiratory 21 20 24 Rate Blood Pressure 109/70 109/70 109/70 O2 Sat by Pulse 100 100 99 Oximetry 12/04/16 12/04/16 12/04/16 18:45 18:47 18:49 Temperature Pulse Rate 67 63 70 Respiratory 11 L 12 14 Rate Blood Pressure 109/70 109/70 109/70 O2 Sat by Pulse 100 100 Oximetry 12/04/16 12/04/16 12/04/16 18:51 18:53 18:55 Temperature Pulse Rate 63 61 51 L Respiratory 14 13 17 Rate Blood Pressure 109/70 109/70 109/70 O2 Sat by Pulse 100 100 75 L Oximetry 12/04/16 12/04/16 12/04/16 18:57 18:59 19:00 Temperature Pulse Rate 54 L 72 60 Respiratory 16 18 18 Rate Blood Pressure 109/70 109/70 106/65 O2 Sat by Pulse 100 100 100 Oximetry 12/04/16 12/04/16 12/04/16 19:01 19:03 19:05 Temperature Pulse Rate 60 61 60 Respiratory 11 L 17 16 Rate Blood Pressure 106/65 106/65 106/65 O2 Sat by Pulse 100 99 100 Oximetry 12/04/16 12/04/16 12/04/16 19:06 19:07 19:09 Temperature Pulse Rate 60 Respiratory 15 Rate Blood Pressure 106/65 106/65 106/65 O2 Sat by Pulse 100 83 L 85 Oximetry - Reevaluation(s) Reevaluation #1: The patient was given antiemetics as well as antianxiety medication and an analgesic. It certainly does appear that her pain symptoms are disproportionate to her laboratory workup as well as her physical exam vital signs. The recurrent nature of her pain as well as multiple drug allergies to opioids with the exception of Dilaudid is pointing to a chronic pain syndrome. Patient has a history of osteogenesis imperfecta which certainly can be associated with painful injury. In any case she has clinically improved. She states she is ready for discharge. I'm going to refer her to a silk hanger and a GI specialist. 12/04/16 19:00 Reevaluation #2: Patient's urinalysis and UPT will be checked prior to discharge. Nothing to suggest anticipated abnormalities at this point. 12/04/16 19:08 ED Medical Decision Making - Lab Data Result diagrams: 12/04/16 15:55 12/04/16 15:55 Laboratory Results - last 24 hr 12/04/16 12/04/16 15:55 15:55 WBC 5.9 RBC 4.39 Hgb 13.3 Hct 39.1 MCV 89 MCH 30 MCHC 34 RDW 13.0 L Plt Count 180 Lymph % (Auto) 9.1 L [place] % (Auto) 2.5 Eos % (Auto) 0.1 Baso % (Auto) 0.6 Lymph # 0.5 L [place] # 0.1 Eos # 0.0 Baso # 0.0 Seg Neutrophils % 87.7 H Seg Neutrophils # 5.2 Sodium 141 Potassium 3.5 L Chloride 99.3 Carbon Dioxide 21 L Anion Gap 24 BUN 9 Creatinine 0.5 L Estimated GFR > 60 BUN/Creatinine Ratio 18.00 Glucose 126 H Calcium 9.9 Laboratory Results - last 24 hr 12/04/16 12/04/16 12/04/16 15:55 15:55 19:18 WBC 5.9 RBC 4.39 Hgb 13.3 Hct 39.1 MCV 89 MCH 30 MCHC 34 RDW 13.0 L Plt Count 180 Lymph % (Auto) 9.1 L [place] % (Auto) 2.5 Eos % (Auto) 0.1 Baso % (Auto) 0.6 Lymph # 0.5 L [place] # 0.1 Eos # 0.0 Baso # 0.0 Seg Neutrophils % 87.7 H Seg Neutrophils # 5.2 Sodium 141 Potassium 3.5 L Chloride 99.3 Carbon Dioxide 21 L Anion Gap 24 BUN 9 Creatinine 0.5 L Estimated GFR > 60 BUN/Creatinine Ratio 18.00 Glucose 126 H Calcium 9.9 Urine Color Yellow Urine Turbidity Clear Urine pH 8.0 H Ur Specific [place] 1.030 Urine Protein 100 mg/dl Urine Glucose (UA) Neg Urine Ketones 20 Urine Blood Mod Urine Nitrite Neg Urine Bilirubin Neg Urine Urobilinogen 2.0 Ur Leukocyte Esterase Neg Urine WBC (Auto) 1.0 Urine RBC (Auto) > 182.0 U Epithel Cells (Auto) 6.0 Urine Mucus 3+ Urine HCG, Qual 12/04/16 19:18 WBC RBC Hgb Hct MCV MCH MCHC RDW Plt Count Lymph % (Auto) [place] % (Auto) Eos % (Auto) Baso % (Auto) Lymph # [place] # Eos # Baso # Seg Neutrophils % Seg Neutrophils # Sodium Potassium Chloride Carbon Dioxide Anion Gap BUN Creatinine Estimated GFR BUN/Creatinine Ratio Glucose Calcium Urine Color Urine Turbidity Urine pH Ur Specific [place] Urine Protein Urine Glucose (UA) Urine Ketones Urine Blood Urine Nitrite Urine Bilirubin Urine Urobilinogen Ur Leukocyte Esterase Urine WBC (Auto) Urine RBC (Auto) U Epithel Cells (Auto) Urine Mucus Urine HCG, Qual Negative Critical care attestation.: If time is entered above; I have spent that time in minutes in the direct care of this critically ill patient, excluding procedure time. ED Disposition Clinical Impression: Menorrhalgia Abdominal pain Qualifiers: Abdominal location: generalized Qualified Code(s): R10.84 - Generalized abdominal pain Disposition: TO HOME OR SELFCARE Is pt being admited?: No Does the pt Need Aspirin: No Condition: Stable Instructions: Dysmenorrhea (ED), Abdominal Pain (ED) Additional Instructions: Further evaluation and follow-up by silk hanger and a isotope technologist is recommended. See referrals. Rx as needed. Return any acute change or problem. Prescriptions: HYDROcodone/APAP 5-325 [[place] 5/325] 1 each PO Q6HR PRN #10 tablet PRN Reason: Pain Ondansetron [Zofran Odt] 4 mg PO Q6H #10 tab.rapdis Referrals: PRIMARY CAREMD [Primary Care Provider] - 3-5 Days [facility] [Provider Group] - 3-5 Days DANNY SAINI MD [Staff Physician] - 3-5 Days Time of Disposition: 19:10
[2016-12-04 19:16] VITALS: BP 106/65
[2016-12-04 19:32] LABS: Bilirubin,Urine NEG (Negative); Blood,Urine MOD (Negative); Ketones,Urine 20 mg/dL (Negative); Leukocyte Esterase,Urine NEG (Negative); Mucus,Urine 3+ /HPF; Nitrite,Urine NEG (Negative)
[2016-12-04 19:35] LABS: RBC,Urine > 182.0 /HPF (0.0-6.0)
--- NOTE | 2016-12-05 07:30 | XRay Report ---
LEFT KNEE, 3 views: History: Left knee swelling. No comparison. Periarticular osteopenia is noted. Intramedullary rods in the femoral and tibial shafts are noted and partially imaged, correlate with surgical history. There is chronic deformity of the patella suggesting previous fracture. Moderate degenerative changes are noted in the patellofemoral space. No evidence for acute fracture, bone lesion or large joint effusion. IMPRESSION: Chronic findings as described. No acute process is noted.
== END 2016-12-04 19:50 | disposition home or self-care (01) ==
LOC: ED 15:38
DX: R10.84 Generalized abdominal pain (principal); N92.0 Excessive and frequent menstruation with regular cycle; Z88.6 Allergy status to analgesic agent; Z88.8 Allergy status to other drugs, medicaments and biological substances
CPT/HCPCS: 36415; 73562; 80048; 81001; 81025; 85025; 96374; 96375; 99284; J1170; J1200; J2060; J2405

== ENCOUNTER 2017-01-02 06:04 | Emergency (ER) | payer SELFPAY ==
[2017-01-02 06:18] VITALS: BP 126/98
[2017-01-02 06:40] LABS: Basophils % (Auto) 0.3 % (0.0-1.8); Hematocrit 38.9 % (30.3-42.9); Hemoglobin 12.8 gm/dl (10.1-14.3); Mean Corpuscular HGB Conc 33 % (30-34); Mean Corpuscular Hemoglobin 30 pg (28-32); Mean Corpuscular Volume 92 fl (79-97); Red Blood Count 4.24 M/mm3 (3.65-5.03); Red Cell Distribution Width 13.3 % (13.2-15.2)
[2017-01-02 06:53] LABS: Alanine Aminotransferase 8 units/L (7-56); Albumin 4.1 g/dL (3.9-5); Albumin/Globulin Ratio 1.1 %; Alkaline Phosphatase 64 units/L (35-129); Anion Gap 18 mmol/L; Blood Urea Nitrogen 10 mg/dL (7-17); Calcium 9.2 mg/dL (8.4-10.2); Carbon Dioxide 23 mmol/L (22-30); Chloride 101.5 mmol/L (98-107); Glucose 97 mg/dL (65-100); Lipase 25 units/L (13-60); Potassium 3.9 mmol/L (3.6-5.0); Sodium 139 mmol/L (137-145); Total Protein 7.7 g/dL (6.3-8.2)
[2017-01-02 06:57] LABS: Platelet Count 183 K/mm3 (140-440)
--- NOTE | 2017-01-02 07:27 | XRay Report ---
ABDOMEN, 2 views: History: Right lower quadrant pain, vomiting. There is no evidence of free air beneath the diaphragms. The gas pattern within the abdomen is unremarkable. There is no evidence of bowel dilatation, significant air-fluid levels, or pathologic calcifications. Organ shadows are unremarkable. IMPRESSION: Unremarkable abdomen.
[2017-01-02] MEDS ORDERED: SUBLIMAZE IV ONE (07:55)
[2017-01-02] MEDS ORDERED: ZOFRAN IV ONE (07:55)
[2017-01-02] MEDS ORDERED: TORADOL IV ONE (07:56)
--- NOTE | 2017-01-02 08:01 | Emergency Department Report ---
HPI - General Chief Complaint: Abdominal Pain Time Seen by Provider: 01/02/17 07:51 - HPI HPI: Room 4 The patient is a 26-year-old female presenting with a chief complaint of left flank pain. The patient states for the past 3 days she's had a constant sharp pain in the left flank associated with nausea and vomiting. The patient states she has not had a bowel movement in 2 days and she normally has a bowel movement daily. Patient admits to dysuria for 1 day. Patient is currently on her cycle and states this is the normal time. Location: Left flank Duration: 3 days Quality: Sharp Severity: Moderate Modifying factors: [see above] Context: [see above] Mode of transportation: [not driving] ED Past Medical Hx - Past Medical History Previous Medical History?: Yes Additional medical history: osteogensis Impertecta - Surgical History Past Surgical History?: Yes Additional Surgical History: > 10 surgeries related to OI, with rods in bilateral legs - Family History Family history: no significant - Social History Smoking Status: Never Smoker Substance Use Type: None (denies illicit drug use) - Medications Home Medications: Home Medications Medication Instructions Recorded Confirmed Last Taken Type HYDROcodone/APAP 5-325 [[place] 1 each PO Q6HR PRN #10 tablet 12/04/16 Unknown Rx 5/325] Ondansetron [Zofran Odt] 4 mg PO Q6H #10 tab.rapdis 12/04/16 Unknown Rx ED Review of Systems ROS: Stated complaint: ABD PAIN Other details as noted in HPI Comment: All other systems reviewed and negative Constitutional: denies: chills, fever Eyes: denies: eye pain, eye discharge, vision change ENT: denies: ear pain, throat pain Respiratory: denies: cough, shortness of breath, wheezing Cardiovascular: denies: chest pain, palpitations Endocrine: no symptoms reported Gastrointestinal: abdominal pain, nausea, vomiting, constipation. denies: diarrhea Genitourinary: dysuria. denies: urgency, discharge Musculoskeletal: back pain. denies: joint swelling, arthralgia Skin: denies: rash, lesions Neurological: denies: headache, weakness, paresthesias Psychiatric: denies: anxiety, depression Hematological/Lymphatic: denies: easy bleeding, easy bruising Physical Exam - Physical Exam Vital Signs: Vital Signs 01/02/17 06:13 Temperature 98.2 F Pulse Rate 88 Respiratory 24 Rate Blood Pressure 126/98 O2 Sat by Pulse 99 Oximetry Physical Exam: GENERAL: The patient is well-developed well-nourished female leaning over stretcher appearing to be in moderate discomfort HEENT: Normocephalic. Atraumatic. Extraocular motions are intact. NECK: Supple. CHEST/LUNGS: Clear to auscultation. There is no respiratory distress noted. HEART/CARDIOVASCULAR: Regular. There is no tachycardia. There is no gallop rub or murmur. ABDOMEN: Abdomen is soft, with mild discomfort to palpation of the left lower quadrant. Abdomen is nontender in all other quadrants. Patient has normal bowel sounds. There is no abdominal distention. SKIN: There is no rash. There is no edema. There is no diaphoresis. NEURO: The patient is awake, alert, and oriented. The patient is cooperative. The patient has normal speech and gait. MUSCULOSKELETAL: There is no evidence of acute injury. ED Course Vital Signs 01/02/17 06:13 Temperature 98.2 F Pulse Rate 88 Respiratory 24 Rate Blood Pressure 126/98 O2 Sat by Pulse 99 Oximetry ED Medical Decision Making - Lab Data Result diagrams: 01/02/17 06:22 01/02/17 06:22 Laboratory Tests 01/02/17 01/02/17 01/02/17 06:22 06:22 06:22 WBC 5.0 RBC 4.24 Hgb 12.8 Hct 38.9 MCV 92 MCH 30 MCHC 33 RDW 13.3 Plt Count 183 Lymph % (Auto) 42.6 H [place] % (Auto) 8.0 H Eos % (Auto) 1.0 Baso % (Auto) 0.3 Lymph # 2.1 [place] # 0.4 Eos # 0.1 Baso # 0.0 Seg Neutrophils % 48.1 Seg Neutrophils # 2.4 Sodium 139 Potassium 3.9 Chloride 101.5 Carbon Dioxide 23 Anion Gap 18 BUN 10 Creatinine 0.5 L Estimated GFR > 60 BUN/Creatinine Ratio 20.00 Glucose 97 Calcium 9.2 Total Bilirubin 0.30 AST 15 ALT 8 Alkaline Phosphatase 64 Total Protein 7.7 Albumin 4.1 Albumin/Globulin Ratio 1.1 Lipase 25 HCG, Qual Negative - Radiology Data Radiology results: report reviewed (CT abdomen and pelvis), image reviewed ( abdominal x-ray, CT abdomen and pelvis) interpreted by me: Abdominal q-cct-[id number] bowel gas pattern. No free air CT abdomen and pelvis for this is read by radiologist)-nephrocalcinosis. Punctate bilateral renal calyceal stones without obstruction. No obvious ureteral stones. - Differential Diagnosis renal colic, pyelonephritis, constipation Critical care attestation.: If time is entered above; I have spent that time in minutes in the direct care of this critically ill patient, excluding procedure time. ED Disposition Clinical Impression: Left flank pain Disposition: Z-07 ELOPED Is pt being admited?: No Does the pt Need Aspirin: No Condition: Undetermined Instructions: Abdominal Pain (ED) Referrals: PRIMARY CARE, [Primary Care Provider] - 3-5 Days Time of Disposition: 09:15 (patient eloped)
[2017-01-02] MEDS ORDERED: NACL 0.9% 1000 ML 1,000 ML IV ONE (08:04)
--- NOTE | 2017-01-02 08:35 | Cat Scan Report ---
CT OF THE ABDOMEN AND PELVIS WITHOUT CONTRAST HISTORY: Left flank pain. TECHNIQUE: Helical CT without contrast. Sagittal and coronal reformatted images. FINDINGS: Compared to 07/20/16. Both kidneys are normal size, contour and position. The renal pyramids are slightly hyperdense bilaterally consistent with nephrocalcinosis. There are a few punctate nonobstructing calyceal stones in both kidneys which are unchanged. No ureteral stones or hydronephrosis is appreciated. No renal cystic disease or obvious renal mass. The bladder is empty. Within the limits of a noncontrast exam, the remaining abdominal and pelvic viscera are within normal limits. The liver, biliary system, pancreas, spleen, kidneys, and adrenal glands are unremarkable. The bowel loops are normal caliber and wall thickness. Normal appendix. The aorta is normal caliber. No ascites, bulky adenopathy or inflammatory changes. The lung bases are clear. Normal heart size. No suspicious bony lesion. IMPRESSION: Nephrocalcinosis. Punctate bilateral renal calyceal stones without obstruction. No obvious ureteral stones.
== END 2017-01-02 09:05 | disposition left against medical advice (07) ==
LOC: ED 06:04
DX: R10.9 Unspecified abdominal pain (principal); R11.2 Nausea with vomiting, unspecified; R30.0 Dysuria
CPT/HCPCS: 36415; 74020; 74176; 80053; 83690; 84703; 85025; 99284; J7030; J1885; J2405; J3010

== ENCOUNTER 2017-03-25 06:32 | Emergency (ER) | payer SELFPAY ==
[2017-03-25] MEDS ORDERED: ZOFRAN ONE (07:42)
[2017-03-25] MEDS ORDERED: NACL 0.9% 1000 ML 1,000 ML ONE (07:42)
[2017-03-25 07:52] LABS: Basophils % (Auto) 0.4 % (0.0-1.8); Eosinophils % (Auto) 0.2 % (0.0-4.3); Hematocrit 38.6 % (30.3-42.9); Hemoglobin 12.7 gm/dl (10.1-14.3); Mean Corpuscular HGB Conc 33 % (30-34); Mean Corpuscular Hemoglobin 30 pg (28-32); Mean Corpuscular Volume 91 fl (79-97); Platelet Count 223 K/mm3 (140-440); Red Blood Count 4.27 M/mm3 (3.65-5.03); White Blood Count 6.9 K/mm3 (4.5-11.0)
[2017-03-25] MEDS ORDERED: ZOFRAN IV ONE (07:59)
[2017-03-25] MEDS ORDERED: NACL 0.9% 1000 ML 1,000 ML IV ONE ×2 (07:59→09:39)
[2017-03-25 08:19] LABS: Anion Gap 24 mmol/L; BUN/Creatinine Ratio 28; Blood Urea Nitrogen 11 mg/dL (7-17); Calcium 9.3 mg/dL (8.4-10.2); Carbon Dioxide 21 mmol/L (22-30); Chloride 98.9 mmol/L (98-107); Glucose 127 mg/dL (65-100); Potassium 3.2 mmol/L (3.6-5.0); Sodium 141 mmol/L (137-145)
[2017-03-25] MEDS ORDERED: TORADOL IV ONE (09:39)
[2017-03-25] MEDS ORDERED: BENTYL IM ONE (09:39)
[2017-03-25] MEDS ORDERED: DILAUDID IV ONE (09:39)
--- NOTE | 2017-03-25 09:46 | Emergency Department Report ---
ED Abdominal Pain HPI - General Chief Complaint: Nausea/Vomiting/Diarrhea Stated Complaint: NAUSEA/VOMITING Time Seen by Provider: 03/25/17 08:06 Source: patient Mode of arrival: Ambulatory Limitations: Physical Limitation - History of Present Illness Initial Comments: 26 YO FEMALE WITH C/O SHARP EPIGASTRIC ABDOMINAL PAIN THE BEGAN YESTERDAY. SHE HAS VOMITED 6-7 TIEMS WHILE AT HOME AND 3 TIMES HERE. SHE HAD HAD SIMILAR EPISODES IN THE PAST WITH NO KNOWN DIAGNOSIS. SHE RATES HER PAIN 10/10 AND HAS A H/O OSTEOGENESIS IMPERFECTA TYPE 4. SHE DENIES DIARRHEA AND FEVER OR CHILLS MD Complaint: abdominal pain -: days(s) (1) Location: epigastric Radiation: none Migration to: no migration Severity scale (0 -10): 10 Quality: sharp Consistency: constant Improves With: medication Worsens With: nothing Associated Symptoms: nausea, vomiting - Related Data Previous Rx's Medication Instructions Recorded Last Taken Type HYDROcodone/APAP 5-325 [[place] 1 each PO Q6HR PRN #10 tablet 12/04/16 Unknown Rx 5/325] Ondansetron [Zofran Odt] 4 mg PO Q6H #10 tab.rapdis 12/04/16 Unknown Rx Metoclopramide [Reglan] 10 mg PO TID #12 tab 03/25/17 Unknown Rx Allergies Allergy/AdvReac Type Severity Reaction Status Date / Time meperidine HCl [From Demerol] Allergy Unknown Verified 02/08/16 20:54 morphine Allergy Shortness Verified 02/13/14 09:51 of Breath ED Review of Systems ROS: Stated complaint: NAUSEA/VOMITING Other details as noted in HPI Constitutional: denies: chills, fever Eyes: denies: eye pain, eye discharge, vision change ENT: denies: ear pain, throat pain Respiratory: denies: cough, shortness of breath, wheezing Cardiovascular: denies: chest pain, palpitations Endocrine: no symptoms reported Gastrointestinal: nausea, vomiting. denies: diarrhea Genitourinary: denies: urgency, dysuria, discharge Musculoskeletal: denies: back pain, joint swelling, arthralgia Skin: denies: rash, lesions Neurological: denies: headache, weakness, paresthesias Psychiatric: denies: anxiety, depression Hematological/Lymphatic: denies: easy bleeding, easy bruising ED Past Medical Hx - Past Medical History Additional medical history: osteogensis Impertecta - Surgical History Additional Surgical History: > 10 surgeries related to OI, with rods in bilateral legs - Social History Smoking Status: Never Smoker Substance Use Type: None (denies illicit drug use) - Medications Home Medications: Home Medications Medication Instructions Recorded Confirmed Last Taken Type HYDROcodone/APAP 5-325 [[place] 1 each PO Q6HR PRN #10 tablet 12/04/16 Unknown Rx 5/325] Ondansetron [Zofran Odt] 4 mg PO Q6H #10 tab.rapdis 12/04/16 Unknown Rx Metoclopramide [Reglan] 10 mg PO TID #12 tab 03/25/17 Unknown Rx ED Physical Exam - General Limitations: Physical Limitation ED Course Vital Signs 03/25/17 03/25/17 03/25/17 07:32 07:34 07:46 Temperature 98.2 F Pulse Rate 96 H 63 59 L Respiratory 15 12 15 Rate Blood Pressure 109/69 48/32 O2 Sat by Pulse 100 100 100 Oximetry 03/25/17 03/25/17 03/25/17 07:52 08:00 08:15 Temperature 97.7 F Pulse Rate 53 L 62 Respiratory 12 6 L 21 Rate Blood Pressure 127/71 131/84 O2 Sat by Pulse 100 99 100 Oximetry 03/25/17 03/25/17 03/25/17 08:30 08:45 09:00 Temperature Pulse Rate 56 L 71 66 Respiratory 19 14 10 L Rate Blood Pressure 127/71 127/71 101/66 O2 Sat by Pulse 100 100 100 Oximetry 03/25/17 03/25/17 03/25/17 09:15 09:31 09:45 Temperature Pulse Rate 58 L 67 59 L Respiratory 14 9 L 10 L Rate Blood Pressure 101/66 101/66 101/66 O2 Sat by Pulse 98 100 100 Oximetry 03/25/17 03/25/17 03/25/17 10:00 10:33 10:45 Temperature Pulse Rate 67 56 L Respiratory 9 L 12 12 Rate Blood Pressure 113/78 113/78 113/78 O2 Sat by Pulse 100 Oximetry 03/25/17 03/25/17 03/25/17 11:00 11:15 11:30 Temperature Pulse Rate 57 L 59 L 60 Respiratory 13 13 15 Rate Blood Pressure 104/55 104/55 113/78 O2 Sat by Pulse Oximetry 03/25/17 03/25/17 03/25/17 11:45 12:00 12:15 Temperature Pulse Rate 57 L 56 L 57 L Respiratory 14 15 14 Rate Blood Pressure 113/78 91/62 91/62 O2 Sat by Pulse Oximetry ED Medical Decision Making - Lab Data Result diagrams: 03/25/17 07:41 03/25/17 07:46 - Radiology Data Radiology results: report reviewed (CT ABD/PELVIS;NEGATIVE ABD XERIES:NEGATIVE) - Medical Decision Making CTA BD NEGATIVE AND PT PAIN FREE AND NOT VOMITING, I WILL D/EZIO TO FOLLOW UP WITH HER Critical care attestation.: If time is entered above; I have spent that time in minutes in the direct care of this critically ill patient, excluding procedure time. ED Disposition Clinical Impression: Hypokalemia Abdominal pain Qualifiers: Abdominal location: unspecified location Qualified Code(s): R10.9 - Unspecified abdominal pain Nausea & vomiting Qualifiers: Vomiting type: unspecified Vomiting Intractability: non-intractable Qualified Code(s): R11.2 - Nausea with vomiting, unspecified Disposition: DC-01 TO HOME OR SELFCARE Is pt being admited?: No Does the pt Need Aspirin: No Condition: Stable Instructions: Acute Nausea and Vomiting (ED), Acute Abdominal Pain (ED) Additional Instructions: RETURN IF YOUR SYMPTOMS GET WORSE OR RETURN OTHERWISE PLESE FOLLOW UP W ITH YOUR DOCTOR. Prescriptions: Metoclopramide [Reglan] 10 mg PO TID #12 tab Referrals: PRIMARY CARE, [Primary Care Provider] - 3-5 Days [facility] [Outside] - 3-5 Days Time of Disposition: 14:13
[2017-03-25 10:26] LABS: Alanine Aminotransferase 19 units/L (7-56); Albumin 4.5 g/dL (3.9-5); Albumin/Globulin Ratio 1.5 %; Alkaline Phosphatase 69 units/L (35-129); Total Protein 7.6 g/dL (6.3-8.2)
[2017-03-25 10:30] LABS: Bilirubin,Direct < 0.2 mg/dL (0-0.2); Bilirubin,Indirect 0.3 mg/dL
--- NOTE | 2017-03-25 10:50 | XRay Report ---
ABDOMINAL SERIES: History: Abdominal pain, nausea and vomiting. Erect chest film shows no acute or significant changes involving the heart or lung pelayo. There is no evidence of free air beneath the diaphragms. The gas pattern within the abdomen is unremarkable. There is no evidence of bowel dilatation, significant air-fluid levels, or masses. Organ shadows are unremarkable. IMPRESSION: Abdominal series within normal limits.
[2017-03-25 12:22] VITALS: BP 91/62
[2017-03-25] MEDS ORDERED: NACL ONE (12:36)
--- NOTE | 2017-03-25 13:26 | Cat Scan Report ---
CT ABDOMEN PELVIS WITH CONTRAST: HISTORY: Sharp epigastric abdominal pain, osteogenesis imperfecta. COMPARISON: 01/02/17. TECHNIQUE: Helical CT in 1.25mm intervals following IV contrast. Sagittal and coronal reconstructions. FINDINGS: Lung bases: Normal. Liver: Normal. Biliary system: Normal. Pancreas: Normal. Spleen: Normal. Kidneys/ureters/bladder: Normal. Adrenal glands: Normal. Aorta: Normal. Intestines: Normal. Appendix: Not clearly identified, correlate with surgical history. Pelvic viscera: Normal. Ascites: Trace pelvic fluid which is likely physiologic. Adenopathy: None. Musculoskeletal: Intact. Previous stabilization of the femurs is partially imaged. No evidence for acute fracture or bony lesion. IMPRESSION: Unremarkable CT scan of the abdomen and pelvis with contrast. No acute process is noted.
== END 2017-03-25 14:22 | disposition home or self-care (01) ==
LOC: ED 06:32
DX: E87.6 Hypokalemia (principal); Z88.6 Allergy status to analgesic agent; Z88.8 Allergy status to other drugs, medicaments and biological substances
CPT/HCPCS: 36415; 74022; 74177; 80048; 80074; 83690; 84703; 85025; 93005; 93010; 96361; 96372; 96374; 96375; 99284; J0500; J1170; J1885; J2405; J7030; Q9967

== ENCOUNTER 2017-05-29 15:01 | Emergency (ER) | payer SELFPAY ==
--- NOTE | 2017-05-29 15:23 | Emergency Department Report ---
Blank Doc - Documentation Documentation: Patient is a 26-year-old female who states that at 4 AM she started to vomitdry heaving. Patient is complaining of some epigastric discomfort. Patient denies any cough cold congestion and diarrhea.
[2017-05-29] MEDS ORDERED: NACL 0.9% 1000 ML 1,000 ML IV ONE (15:24)
[2017-05-29] MEDS ORDERED: PEPCID IV ONE (15:24)
[2017-05-29] MEDS ORDERED: ZOFRAN IV ONE (15:24)
[2017-05-29] MEDS ORDERED: TORADOL IV ONE ×2 (15:43→16:00)
[2017-05-29 16:00] LABS: Basophils % (Auto) 0.4 % (0.0-1.8); Eosinophils % (Auto) 0.2 % (0.0-4.3); Hematocrit 38.3 % (30.3-42.9); Hemoglobin 12.6 gm/dl (10.1-14.3); Lymphocytes # (Auto) 0.4 K/mm3 (1.2-5.4); Lymphocytes % (Auto) 5.3 % (13.4-35.0); Mean Corpuscular HGB Conc 33 % (30-34); Mean Corpuscular Hemoglobin 30 pg (28-32); Mean Corpuscular Volume 92 fl (79-97); Monocytes # (Auto) 0.3 K/mm3 (0.0-0.8); Monocytes % (Auto) 4.6 % (0.0-7.3); Platelet Count 196 K/mm3 (140-440); Red Blood Count 4.19 M/mm3 (3.65-5.03)
[2017-05-29] MEDS ORDERED: GEODON IM ONE (16:00)
[2017-05-29] MEDS ORDERED: BENTYL IM ONE (16:00)
[2017-05-29 16:08] LABS: Alanine Aminotransferase 22 units/L (7-56); Albumin 4.1 g/dL (3.9-5); BUN/Creatinine Ratio 28; Blood Urea Nitrogen 11 mg/dL (7-17); Calcium 8.4 mg/dL (8.4-10.2); Hemolysis Index 5; Lipase 18 units/L (13-60)
--- NOTE | 2017-05-29 16:41 | Emergency Department Report ---
Vomiting/Diarrhea - HPI Duration: Today Severity: moderate Nausea/Vomiting Severity: Moderate Diarrhea Severity: Mild Pain Location: Periumbilical Pain Severity: Moderate Symptoms: Yes Watery Diarrhea, No Bloody diarrhea, No Fever, No Able to Tolerate Fluids, No Recent Unusual Foods, No Recent Untreated Water, No Recent use of Antibiotics, No Family w/ Similar Symptoms, No Contacts w/ Similar Symptoms, No Rash, No Hematuria, No Recent URI Symptoms Other History: 26-year-old female with no prior medical history since he complaining of vomiting episodes estimated at 4 AM this morning. Patient states that she usually gets nauseated around her cycle. Patient states her cycle was 04/15/2017. Patient states that she has some intermittent cramping and some watery loose stools that started this morning. She denies any unusual foods, fever, chills <NAVARRO CHIU - Last Filed: 05/29/17 17:45> <GLADYS MANN - Last Filed: 05/29/17 18:20> - HPI Chief Complaint: Nausea/Vomiting/Diarrhea Stated Complaint: VOMITING Time Seen by Provider: 05/29/17 15:20 ED Review of Systems ROS: Stated complaint: VOMITING Other details as noted in HPI Constitutional: denies: chills, fever Eyes: denies: eye pain, eye discharge, vision change ENT: denies: ear pain, throat pain Respiratory: denies: cough, shortness of breath, wheezing Cardiovascular: denies: chest pain, palpitations Endocrine: no symptoms reported Gastrointestinal: abdominal pain, vomiting, diarrhea. denies: nausea, constipation Genitourinary: denies: urgency, dysuria, discharge Musculoskeletal: denies: back pain, joint swelling, arthralgia Skin: denies: rash, lesions Neurological: denies: headache, weakness, paresthesias Psychiatric: denies: anxiety, depression Hematological/Lymphatic: denies: easy bleeding, easy bruising <NAVARRO CHIU - Last Filed: 05/29/17 17:45> ROS: Stated complaint: VOMITING Other details as noted in HPI <GLADYS MANN - Last Filed: 05/29/17 18:20> ED Past Medical Hx - Past Medical History Additional medical history: osteogensis Impertecta - Surgical History Additional Surgical History: > 10 surgeries related to OI, with rods in bilateral legs - Social History Smoking Status: Never Smoker Substance Use Type: None <NAVARRO CHIU - Last Filed: 05/29/17 17:45> <GLADYS MANN - Last Filed: 05/29/17 18:20> - Medications Home Medications: Home Medications Medication Instructions Recorded Confirmed Last Taken Type HYDROcodone/APAP 5-325 [[place] 1 each PO Q6HR PRN #10 tablet 12/04/16 Unknown Rx 5/325] Ondansetron [Zofran Odt] 4 mg PO Q6H #10 tab.rapdis 12/04/16 Unknown Rx Acetaminophen/Codeine [Tylenol 1 tab PO Q6H PRN #10 tab 05/29/17 Unknown Rx /Codeine # 3 tab] Metoclopramide [Reglan TAB] 10 mg PO TID #20 tab 05/29/17 Unknown Rx Ranitidine HCl [Zantac 150 MG TAB] 150 mg PO DAILY #20 tablet 05/29/17 Unknown Rx Vomiting Diarrhea Exam - Exam General: Vital signs noted. No distress. Alert and acting appropriately. HEENT: Yes Moist Mucous Membranes, No Pharyngeal Erythema, No Pharyngeal Exudates, No Rhinorrhea, No Conjuctival Injection, No Frontal Tenderness, No Maxillary Tenderness Neck: No Adenopathy, No Rigidity Lungs: Yes Clear Lung Sounds, Yes Good Air Exchange, No Wheezes, No Stridor, No Cough, No Nasal Flaring, No Retractions, No Use of Accessory Muscles Heart exam: Regular: Yes, Murmur: No, Tachycardia: No Abdomen: Tenderness: No, Peritoneal Signs: No, Distention: No, Hyperactive Bowel sounds: No Skin exam: Rash: No, Edema: No, Normal turgor: Yes Neurologic: Alert and oriented, no deficits. Musculoskeletal: Unremarkable. <NAVARRO CHIU - Last Filed: 05/29/17 17:45> - Exam General: Vital signs noted. No distress. Alert and acting appropriately. Neurologic: Alert and oriented, no deficits. Musculoskeletal: Unremarkable. <GLADYS MANN - Last Filed: 05/29/17 18:20> ED Course Vital Signs 05/29/17 15:10 Temperature 97.4 F L Pulse Rate 93 H Respiratory 16 Rate Blood Pressure 132/65 O2 Sat by Pulse 99 Oximetry <NAVARRO CHIU - Last Filed: 05/29/17 17:45> Vital Signs 05/29/17 15:10 Temperature 97.4 F L Pulse Rate 93 H Respiratory 16 Rate Blood Pressure 132/65 O2 Sat by Pulse 99 Oximetry <GLADYS MANN - Last Filed: 05/29/17 18:20> ED Medical Decision Making - Lab Data Result diagrams: 05/29/17 15:28 05/29/17 15:28 Laboratory Results - last 24 hr 05/29/17 05/29/17 05/29/17 15:28 15:28 16:56 WBC 7.0 RBC 4.19 Hgb 12.6 Hct 38.3 MCV 92 MCH 30 MCHC 33 RDW 14.0 Plt Count 196 Lymph % (Auto) 5.3 L [place] % (Auto) 4.6 Eos % (Auto) 0.2 Baso % (Auto) 0.4 Lymph # 0.4 L [place] # 0.3 Eos # 0.0 Baso # 0.0 Seg Neutrophils % 89.5 H Seg Neutrophils # 6.3 Sodium 138 Potassium 3.8 Chloride 102.9 Carbon Dioxide 18 L Anion Gap 21 BUN 11 Creatinine 0.4 L Estimated GFR > 60 BUN/Creatinine Ratio 28 Glucose 117 H Calcium 8.4 Total Bilirubin 0.40 AST 25 ALT 22 Alkaline Phosphatase 74 Total Protein 7.3 Albumin 4.1 Albumin/Globulin Ratio 1.3 Lipase 18 HCG, Qual Negative - Medical Decision Making 26-year-old female presents to ED with gastroenteritis CBC, BMP, lipase, urinalysis and tests ordered. Patient received 1 L of fluids while in EMS. Patient received 1 L of fluid here in ED, Toradol, Zofran, Pepcid and geodon Urinalysis is pending. Patient is sleeping in her room. I was informed by the nurse that she would not cooperate to give a urine sample yet <NAVARRO CHIU - Last Filed: 05/29/17 17:45> - Lab Data Result diagrams: 05/29/17 15:28 05/29/17 15:28 - Medical Decision Making Patient feeling better after Ms. be discharged home <GLADYS MANN - Last Filed: 05/29/17 18:20> Critical care attestation.: If time is entered above; I have spent that time in minutes in the direct care of this critically ill patient, excluding procedure time. <NAVARRO CHIU - Last Filed: 05/29/17 17:45> Critical care attestation.: If time is entered above; I have spent that time in minutes in the direct care of this critically ill patient, excluding procedure time. <GLADYS MANN - Last Filed: 05/29/17 18:20> ED Disposition Is pt being admited?: No Does the pt Need Aspirin: No Time of Disposition: 17:35 <NAVARRO CHIU Kyra - Last Filed: 05/29/17 17:45> Is pt being admited?: No Does the pt Need Aspirin: No <GLADYS MANN - Last Filed: 05/29/17 18:20> Clinical Impression: Gastritis Qualifiers: Gastritis type: unspecified gastritis Chronicity: acute Gastritis bleeding: without bleeding Qualified Code(s): K29.00 - Acute gastritis without bleeding Disposition: - TO HOME OR SELFCARE Condition: Stable Instructions: Acute Nausea and Vomiting (ED) Additional Instructions: Make sure to follow up with the primary care physician as discussed. Take all your medications as you've been prescribed. 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 If you have any worsening symptoms or develop new symptoms please return to ED immediately. Prescriptions: Acetaminophen/Codeine [Tylenol /Codeine # 3 tab] 1 tab PO Q6H PRN #10 tab PRN Reason: Pain Metoclopramide [Reglan TAB] 10 mg PO TID #20 tab Ranitidine HCl [Zantac 150 MG TAB] 150 mg PO DAILY #20 tablet Referrals: PRIMARY CARE, [Primary Care Provider] - 3-5 Days [facility] [Provider Group] - 3-5 Days [facility] [Outside] - 3-5 Days [facility] [Outside] - 3-5 Days [facility] [Outside] - 3-5 Days Forms: Accompanied Note, Work/School Release Form(ED)
[2017-05-29 18:47] VITALS: BP 128/67
== END 2017-05-29 18:38 | disposition home or self-care (01) ==
LOC: ED 15:01
DX: K29.00 Acute gastritis without bleeding (principal); Z88.5 Allergy status to narcotic agent; Z88.6 Allergy status to analgesic agent
CPT/HCPCS: 36415; 80053; 83690; 84703; 85025; 96361; 96372; 96374; 96375; 99284; J0500; J1885; J2405; J3486; J7030

== ENCOUNTER 2017-07-30 02:46 | Emergency (ER) | payer OTHER ==
[2017-07-30 03:26] LABS: Basophils % (Auto) 0.6 % (0.0-1.8); Eosinophils % (Auto) 0.1 % (0.0-4.3); Hematocrit 38.3 % (30.3-42.9); Lymphocytes # (Auto) 0.8 K/mm3 (1.2-5.4); Mean Corpuscular HGB Conc 34 % (30-34); Mean Corpuscular Hemoglobin 30 pg (28-32); Mean Corpuscular Volume 90 fl (79-97); Monocytes # (Auto) 0.3 K/mm3 (0.0-0.8); Monocytes % (Auto) 3.6 % (0.0-7.3); Platelet Count 212 K/mm3 (140-440); Red Blood Count 4.28 M/mm3 (3.65-5.03); Red Cell Distribution Width 13.6 % (13.2-15.2)
[2017-07-30 03:56] LABS: Alanine Aminotransferase 18 units/L (7-56); Albumin 4.6 g/dL (3.9-5); BUN/Creatinine Ratio 22; Blood Urea Nitrogen 11 mg/dL (7-17); Calcium 9.3 mg/dL (8.4-10.2); Hemolysis Index 3
[2017-07-30 05:53] LABS: Amphetamine Screen,Urine PRESUMPTIVE NEGATIVE; Benzodiazepines Screen,Urine PRESUMPTIVE NEGATIVE; Cocaine Screen,Urine PRESUMPTIVE NEGATIVE; Methadone Screen,Urine PRESUMPTIVE NEGATIVE; Opiate Screen,Urine PRESUMPTIVE NEGATIVE
[2017-07-30 05:55] LABS: HCG Qualitative,Urine Negative (Negative)
[2017-07-30 06:01] LABS: Bilirubin,Urine NEG (Negative); Blood,Urine MOD (Negative); Color,Urine Yellow (Yellow); Mucus,Urine 3+ /HPF; Urobilinogen,Urine < 2.0 mg/dL (<2.0)
[2017-07-30 06:11] LABS: Cannabinoid Screen,Urine PRESUMPTIVE POSITIVE
[2017-07-30] MEDS ORDERED: TORADOL ONE (07:40)
[2017-07-30] MEDS ORDERED: ZOFRAN ONE (07:40)
[2017-07-30] MEDS ORDERED: TORADOL IV ONE (07:46)
[2017-07-30] MEDS ORDERED: ZOFRAN IV ONE ×2 (07:46→08:32)
[2017-07-30] MEDS ORDERED: DILAUDID IV ONE (08:32)
--- NOTE | 2017-07-30 08:35 | Emergency Department Report ---
ED Abdominal Pain HPI - General Chief Complaint: Abdominal Pain Stated Complaint: ABD PAIN Time Seen by Provider: 07/30/17 08:09 Source: patient Mode of arrival: Wheelchair Limitations: No Limitations - History of Present Illness Initial Comments: She is a 26-year-old female presents emergency room with complaints of abdominal pain and her entire abdomen 2 days. Patient states the pain is worsened. Patient complains of lots of nausea and vomiting. Patient states she is on her period now. Patient states she is unable to hold any food or water down. Patient states the pain is worse with movement and food and water. Patient states that pain is better with rest. Patient has not showed any OTC medications. Patient denies fever and chills. Patient states the pain is 10. MD Complaint: abdominal pain -: Sudden Location: diffuse Radiation: none Migration to: no migration Severity: severe Severity scale (0 -10): 10 Quality: stabbing Consistency: constant Improves With: rest Worsens With: eating, movement Associated Symptoms: nausea, vomiting. denies: diarrhea, fever, chills, constipation, dysuria, hematemesis, hematochezia, melena, hematuria, anorexia, syncope - Related Data LMP (females 10-50): this week Previous Rx's Medication Instructions Recorded Last Taken Type Promethazine [Phenergan] 25 mg AR Q6HR PRN #10 supp.rect 07/30/17 Unknown Rx Allergies Allergy/AdvReac Type Severity Reaction Status Date / Time meperidine HCl [From Demerol] Allergy Unknown Verified 02/08/16 20:54 morphine Allergy Shortness Verified 02/13/14 09:51 of Breath ED Review of Systems ROS: Stated complaint: ABD PAIN Other details as noted in HPI Constitutional: denies: chills, fever Eyes: denies: eye pain, eye discharge, vision change ENT: denies: ear pain, throat pain Respiratory: denies: cough, shortness of breath, wheezing Cardiovascular: denies: chest pain, palpitations Endocrine: no symptoms reported Gastrointestinal: abdominal pain, nausea, vomiting. denies: diarrhea Genitourinary: denies: urgency, dysuria, discharge Musculoskeletal: denies: back pain, joint swelling, arthralgia Skin: denies: rash, lesions Neurological: denies: headache, weakness, paresthesias Psychiatric: denies: anxiety, depression Hematological/Lymphatic: denies: easy bleeding, easy bruising ED Past Medical Hx - Past Medical History Previous Medical History?: Yes Additional medical history: osteogensis Impertecta - Surgical History Past Surgical History?: Yes Additional Surgical History: > 10 surgeries related to OI, with rods in bilateral legs - Family History Family history: no significant - Social History Smoking Status: Current Every Day Smoker Substance Use Type: None - Medications Home Medications: Home Medications Medication Instructions Recorded Confirmed Last Taken Type Promethazine [Phenergan] 25 mg AR Q6HR PRN #10 supp.rect 07/30/17 Unknown Rx ED Physical Exam - General Limitations: No Limitations General appearance: alert, in no apparent distress - Head Head exam: Present: atraumatic, normocephalic - Eye Eye exam: Present: normal appearance - ENT ENT exam: Present: mucous membranes moist - Neck Neck exam: Present: normal inspection - Respiratory Respiratory exam: Present: normal lung sounds bilaterally. Absent: respiratory distress - Cardiovascular Cardiovascular Exam: Present: regular rate, normal rhythm. Absent: systolic murmur, diastolic murmur, rubs, gallop - GI/Abdominal GI/Abdominal exam: Present: soft, tenderness (tender in all 4 quadrants), normal bowel sounds - Extremities Exam Extremities exam: Present: normal inspection - Back Exam Back exam: Present: normal inspection - Neurological Exam Neurological exam: Present: alert, oriented X3 - Psychiatric Psychiatric exam: Present: normal affect, normal mood - Skin Skin exam: Present: warm, dry, intact, normal color. Absent: rash ED Course Vital Signs 07/30/17 07/30/17 07/30/17 02:58 07:10 07:15 Temperature 97.8 F Pulse Rate 59 L 58 L Respiratory 17 16 Rate Blood Pressure 107/76 130/80 Blood Pressure 130/80 [Left] O2 Sat by Pulse 99 100 Oximetry 07/30/17 07/30/17 07/30/17 07:20 07:30 07:46 Temperature Pulse Rate Respiratory 16 Rate Blood Pressure 130/80 130/80 Blood Pressure [Left] O2 Sat by Pulse 100 89 Oximetry 07/30/17 07/30/17 07/30/17 08:00 08:16 08:52 Temperature Pulse Rate Respiratory Rate Blood Pressure 130/80 130/80 137/83 Blood Pressure [Left] O2 Sat by Pulse 81 L 75 L Oximetry 07/30/17 07/30/1718 09:00 10:55 11:00 Temperature Pulse Rate 58 L Respiratory 18 Rate Blood Pressure 112/73 115/65 105/63 Blood Pressure 115/65 [Left] O2 Sat by Pulse 87 Oximetry 07/30/17 07/30/17 07/30/17 11:16 11:30 11:46 Temperature Pulse Rate Respiratory Rate Blood Pressure 105/63 105/63 105/63 Blood Pressure [Left] O2 Sat by Pulse 100 100 100 Oximetry 07/30/17 07/30/17 07/30/17 12:00 14:01 14:09 Temperature Pulse Rate 62 Respiratory 18 Rate Blood Pressure 103/65 105/62 Blood Pressure 105/62 [Left] O2 Sat by Pulse 100 77 L 98 Oximetry 07/30/17 07/30/17 14:16 14:30 Temperature Pulse Rate Respiratory Rate Blood Pressure 105/62 105/62 Blood Pressure [Left] O2 Sat by Pulse 100 100 Oximetry - Reevaluation(s) Reevaluation #1: Patient states she is able to take Dilaudid has not had a reaction to it. Patient states that she takes Demerol she needs Benadryl with it for rash. Patient states she would like some more nausea medication 07/30/17 08:35 Reevaluation #2: She still complaining of nausea and vomiting. Will admit patient for intractable nausea and vomiting to hospitalist group. Hospitalist consulted. 07/30/17 13:13 ED Medical Decision Making - Lab Data Result diagrams: 07/30/17 03:16 07/30/17 03:16 - Radiology Data Radiology results: report reviewed - Medical Decision Making She is a 26-year-old female that presents to emergency room with nausea vomiting abdominal pain. Will admit patient to hospitalist service for intractable nausea vomiting abdominal pain. Patient has had multiple doses of medication and still having nausea and vomiting. - Differential Diagnosis nausea vomiting. Abdominal pain. Gastroenteritis. Intractable n/v Critical care attestation.: If time is entered above; I have spent that time in minutes in the direct care of this critically ill patient, excluding procedure time. ED Disposition Clinical Impression: Abdominal pain, Intractable nausea and vomiting Disposition: - TO HOME OR SELFCARE Is pt being admited?: Yes Does the pt Need Aspirin: No Condition: Serious Instructions: Abdominal Pain (ED) Prescriptions: Promethazine [Phenergan] 25 mg AR Q6HR PRN #10 supp.rect PRN Reason: Vomiting Time of Disposition: 13:12
[2017-07-30] MEDS ORDERED: BENADRYL ONE (08:51)
[2017-07-30] MEDS ORDERED: BENADRYL IV ONE (08:56)
--- NOTE | 2017-07-30 10:51 | Cat Scan Report ---
CT ABDOMEN PELVIS WITH CONTRAST: HISTORY: abdominal pain. COMPARISON: 03/25/17. TECHNIQUE: Helical CT in 1.25mm intervals following IV contrast. Sagittal and coronal reconstructions. FINDINGS: Lung bases: Normal. Liver: Normal. Biliary system: Normal. Pancreas: Normal. Spleen: Normal. Kidneys/ureters/bladder: Normal. Adrenal glands: Normal. Aorta: Normal. Intestines: Normal. Appendix: Normal. Pelvic viscera: Normal. Ascites: None. Adenopathy: None. Musculoskeletal: Normal. Intramedullary rods within the proximal femurs are partially imaged. IMPRESSION: Unremarkable CT scan of the abdomen and pelvis with contrast. No change is appreciated since 03/25/17.
[2017-07-30] MEDS ORDERED: PHENERGAN PR ONE (13:10)
[2017-07-30] MEDS ORDERED: NACL 0.9% 1000 ML 1,000 ML IV ONE (13:53)
[2017-07-30 14:10] VITALS: BP 105/62
--- NOTE | 2017-07-30 14:55 | Event Note ---
Date: 07/30/17 Persistent vomiting--Subsided with phenergan suppository Dehydration -IV fluids D/c Home on [place] Phenergan
== END 2017-07-30 15:32 | disposition home or self-care (01) ==
LOC: ED 02:46
DX: R10.84 Generalized abdominal pain (principal); R11.2 Nausea with vomiting, unspecified; F17.200 Nicotine dependence, unspecified, uncomplicated; Z88.6 Allergy status to analgesic agent; Z88.8 Allergy status to other drugs, medicaments and biological substances
CPT/HCPCS: 36415; 74177; 80053; 80307; 81001; 81025; 85025; 96361; 96374; 96375; 96376; 99284; J1170; J1200; J1885; J2405; J7030; Q9967

== ENCOUNTER 2018-04-24 01:51 | Emergency (ER) | payer SELFPAY ==
[2018-04-24] MEDS ORDERED: SUBLIMAZE IV ONE ×3 (02:08→04:03)
[2018-04-24] MEDS ORDERED: ZOFRAN IV ONE (02:08)
[2018-04-24] MEDS ORDERED: NACL 0.9% 1000 ML 1,000 ML IV ONE (02:10)
[2018-04-24] MEDS ORDERED: SUBLIMAZE ONE (02:15)
--- NOTE | 2018-04-24 02:49 | Cat Scan Report ---
FINAL REPORT EXAM: CT HEAD/BRAIN WO CON HISTORY: fall TECHNIQUE: Routine axial imaging was obtained of the brain without IV contrast. FINDINGS: The ventricular system is appropriate in size and is symmetric. There is no evidence of acute stroke or hemorrhage. The basal cisterns appear normal. The sinuses reveal secretions and calcifications in the maxillary sinuses compatible with chronic sinusitis. The mastoid air cells are well pneumatized. The calvarium appears intact. IMPRESSION: No acute intracranial process. Chronic bilateral maxillary sinusitis
--- NOTE | 2018-04-24 02:52 | Cat Scan Report ---
FINAL REPORT EXAM: CT CERVICAL SPINE WO CON HISTORY: fall and neck pain TECHNIQUE: Routine axial imaging was obtained of the cervical spine without IV contrast with sagitta l and coronal reconstructions. FINDINGS: The disc heights and alignment appear normal. The canal size is normal. The facet joints are well sarah ntained. The prevertebral soft tissues and C1-C2 articulation appear intact. IMPRESSION: Within normal limits.
[2018-04-24] MEDS ORDERED: REGLAN IV ONE (02:56)
[2018-04-24] MEDS ORDERED: VERSED IV NR (03:00)
[2018-04-24] MEDS ORDERED: HALDOL IV ONE (03:12)
--- NOTE | 2018-04-24 03:13 | Emergency Department Report ---
ED General Adult HPI - General Chief complaint: Fall Stated complaint: FALL Time Seen by Provider: 04/24/18 02:00 Source: patient, EMS Mode of arrival: Stretcher Limitations: Physical Limitation - History of Present Illness Initial comments: She is a 27-year-old female no significant past medical history who presents with fall and nausea and vomiting. Patient states that she was in the shower and that she fell and has some neck pain and back pain as a 7 out of 10 it is an achy type of pain nothing makes it better or worse. Patient also has been vo miting she's been trying to induce vomiting and states that she has some mild epigastric pain. Patient is repeatedly sticking her finger down her throat. Severity scale (0 -10): 6 - Related Data Previous Rx's Medication Instructions Recorded Last Taken Type Promethazine [Phenergan] 25 mg ND Q6HR PRN #10 supp.rect 07/30/17 Unknown Rx cefUROXime [Ceftin] 250 mg PO Q12H #14 tablet 03/29/18 Unknown Rx Ondansetron [Zofran ODT TAB] 4 mg PO Q8HR #20 tab.rapdis 04/24/18 Unknown Rx Tramadol HCl [Ultram] 50 mg PO Q6H #10 tablet 04/24/18 Unknown Rx Allergies Allergy/AdvReac Type Severity Reaction Status Date / Time meperidine HCl [From Demerol] Allergy Unknown Verified 02/08/16 20:54 morphine Allergy Shortness Verified 02/13/14 09:51 of Breath ED Review of Systems ROS: Stated complaint: FALL Other details as noted in HPI Constitutional: denies: chills, fever Eyes: denies: eye pain, eye discharge, vision change ENT: denies: ear pain, throat pain Respiratory: denies: cough, shortness of breath, wheezing Cardiovascular: denies: chest pain, palpitations Endocrine: no symptoms reported Gastrointestinal: denies: abdominal pain, nausea, diarrhea Genitourinary: denies: urgency, dysuria, discharge Musculoskeletal: denies: back pain, joint swelling, arthralgia Skin: denies: rash, lesions Neurological: denies: headache, weakness, paresthesias Psychiatric: denies: anxiety, depression Hematological/Lymphatic: denies: easy bleeding, easy bruising ED Past Medical Hx - Past Medical History Previous Medical History?: Yes Additional medical history: osteogensis Impertecta, panic attack, anxiety - Surgical History Past Surgical History?: Yes Additional Surgical History: > 10 surgeries related to OI, with rods in bilateral legs, metal present on left finger - Social History Smoking Status: Never Smoker Substance Use Type: None - Medications Home Medications: Home Medications Medication Instructions Recorded Confirmed Last Taken Type Promethazine [Phenergan] 25 mg ND Q6HR PRN #10 supp.rect 07/30/17 Unknown Rx cefUROXime [Ceftin] 250 mg PO Q12H #14 tablet 03/29/18 Unknown Rx Ondansetron [Zofran ODT TAB] 4 mg PO Q8HR #20 tab.rapdis 04/24/18 Unknown Rx Tramadol HCl [Ultram] 50 mg PO Q6H #10 tablet 04/24/18 Unknown Rx ED Physical Exam - General Limitations: Physical Limitation General appearance: alert, anxious - Head Head exam: Present: atraumatic, normocephalic - Eye Eye exam: Present: normal appearance - ENT ENT exam: Present: mucous membranes moist - Neck Neck exam: Present: normal inspection - Respiratory Respiratory exam: Present: normal lung sounds bilaterally. Absent: respiratory distress - Cardiovascular Cardiovascular Exam: Present: regular rate, normal rhythm. Absent: systolic murmur, diastolic murmur, rubs, gallop - GI/Abdominal GI/Abdominal exam: Present: soft, normal bowel sounds - Extremities Exam Extremities exam: Present: normal inspection - Back Exam Back exam: Present: normal inspection - Neurological Exam Neurological exam: Present: alert, oriented X3 - Psychiatric Psychiatric exam: Present: normal affect, normal mood - Skin Skin exam: Present: warm, dry, intact, normal color. Absent: rash ED Course Vital Signs 04/24/18 04/24/18 01:59 04:11 Temperature 98 F Pulse Rate 84 88 Respiratory 16 19 Rate Blood Pressure 114/60 Blood Pressure 114/60 111/68 [Left] O2 Sat by Pulse 100 99 Oximetry ED Medical Decision Making - Lab Data Result diagrams: 04/24/18 03:12 04/24/18 03:12 Lab Results 04/24/18 04/24/18 Range/Units 03:12 03:12 WBC 7.3 (4.5-11.0) K/mm3 RBC 4.21 (3.65-5.03) M/mm3 Hgb 12.9 (10.1-14.3) gm/dl Hct 38.3 (30.3-42.9) % MCV 91 (79-97) fl MCH 31 (28-32) pg MCHC 34 (30-34) % RDW 12.8 L (13.2-15.2) % Plt Count 214 (140-440) K/mm3 Lymph % (Auto) 8.9 L (13.4-35.0) % [place] % (Auto) 4.0 (0.0-7.3) % Eos % (Auto) 0.1 (0.0-4.3) % Baso % (Auto) 0.8 (0.0-1.8) % Lymph # 0.6 L (1.2-5.4) K/mm3 [place] # 0.3 (0.0-0.8) K/mm3 Eos # 0.0 (0.0-0.4) K/mm3 Baso # 0.1 (0.0-0.1) K/mm3 Seg Neutrophils % 86.2 H (40.0-70.0) % Seg Neutrophils # 6.3 (1.8-7.7) K/mm3 Sodium 144 (137-145) mmol/L Potassium 3.5 L (3.6-5.0) mmol/L Chloride 102.9 (98-107) mmol/L Carbon Dioxide 25 (22-30) mmol/L Anion Gap 20 mmol/L BUN 9 (7-17) mg/dL Creatinine 0.5 L (0.7-1.2) mg/dL Estimated GFR > 60 ml/min BUN/Creatinine Ratio 18 % Glucose 120 H (65-100) mg/dL Calcium 9.3 (8.4-10.2) mg/dL Total Bilirubin 0.30 (0.1-1.2) mg/dL AST 20 (5-40) units/L ALT 14 (7-56) units/L Alkaline Phosphatase 68 (35-129) units/L Total Protein 7.1 (6.3-8.2) g/dL Albumin 4.7 (3.9-5) g/dL Albumin/Globulin Ratio 2.0 % - Medical Decision Making Chief medical diagnosis: Psychogenic vomiting Differential diagnosis: Cervical strain, electrolyte abnormality I will get CBC, BMP and CT head and CT cervical neck and IV antiemetics Patient is unable tolerate by mouth PATIENT HOME WITH ZOFRAN AND TRAMADOL FOR PAIN Critical care attestation.: If time is entered above; I have spent that time in minutes in the direct care of this critically ill patient, excluding procedure time. ED Disposition Clinical Impression: Fall Qualifiers: Encounter type: initial encounter Qualified Code(s): W19.XXXA - Unspecified fall, initial encounter Nausea and vomiting Qualifiers: Vomiting type: unspecified Vomiting Intractability: unspecified Qualified Code(s): R11.2 - Nausea with vomiting, unspecified Disposition: DC- TO HOME OR SELFCARE Is pt being admited?: No Does the pt Need Aspirin: No Condition: Stable Instructions: Acute Nausea and Vomiting (ED) Prescriptions: Ondansetron [Zofran ODT TAB] 4 mg PO Q8HR #20 tab.rapdis Tramadol HCl [Ultram] 50 mg PO Q6H #10 tablet Referrals: LEIGHANN VERONICA MD [Primary Care Provider] - 3-5 Days
[2018-04-24 03:20] LABS: Basophils # (Auto) 0.1 K/mm3 (0.0-0.1); Basophils % (Auto) 0.8 % (0.0-1.8); Eosinophils % (Auto) 0.1 % (0.0-4.3); Hematocrit 38.3 % (30.3-42.9); Hemoglobin 12.9 gm/dl (10.1-14.3); Lymphocytes # (Auto) 0.6 K/mm3 (1.2-5.4); Lymphocytes % (Auto) 8.9 % (13.4-35.0); Mean Corpuscular HGB Conc 34 % (30-34); Mean Corpuscular Volume 91 fl (79-97); Monocytes # (Auto) 0.3 K/mm3 (0.0-0.8); Platelet Count 214 K/mm3 (140-440); Red Blood Count 4.21 M/mm3 (3.65-5.03); Red Cell Distribution Width 12.8 % (13.2-15.2)
[2018-04-24 04:12] VITALS: BP 111/68
[2018-04-24 04:36] LABS: Alanine Aminotransferase 14 units/L (7-56); Albumin 4.7 g/dL (3.9-5); BUN/Creatinine Ratio 18; Blood Urea Nitrogen 9 mg/dL (7-17); Calcium 9.3 mg/dL (8.4-10.2); Hemolysis Index 9
== END 2018-04-24 05:38 | disposition home or self-care (01) ==
LOC: ED 01:51
DX: R11.2 Nausea with vomiting, unspecified (principal); M54.2 Cervicalgia; M54.9 Dorsalgia, unspecified; R51 Headache; F41.9 Anxiety disorder, unspecified; F41.0 Panic disorder [episodic paroxysmal anxiety]; Z88.8 Allergy status to other drugs, medicaments and biological substances; Z88.6 Allergy status to analgesic agent; W19.XXXA Unspecified fall, initial encounter; Y93.89 Activity, other specified; Y92.091 Bathroom in other non-institutional residence as the place of occurrence of the external cause; Y99.8 Other external cause status
CPT/HCPCS: 36415; 70450; 72125; 80053; 85025; 96361; 96374; 96375; 96376; 99284; J1630; J2405; J2765; J3010; J7030